=== PATIENT | male | born 1945 | race Caucasian/White ===

== ENCOUNTER → 2021-05-19 | Outpatient (CLI) | payer MEDICARE ==
--- NOTE | 2021-05-19 09:46 | US ---
EXAMINATION TYPE: US duplex aorta DATE OF EXAM: 05/19/2021 COMPARISON: Xray CLINICAL HISTORY: I71.4 Abdominal Aortic Aneurysm. AAA visualized on xray EXAM MEASUREMENTS: Abdominal Aorta: Mid: 2.8 x 3.5 cm Distal: 2.8 x 2.9 cm Bifurcation: TEMO: 1.7 x 1.7 cm MARISA: 1.3 x 1.3 cm Severely, morbidly obese pt, difficult scan, proximal portion unable to be visualized Ectatic aorta with largest measurement at mid portion= 3.5 cm/ heavily calcified aortic adhikari IMPRESSION: Mild aneurysmal dilatation and extensive atheromatous change.
== END | disposition home or self-care (01) ==
LOC: RADUSWWP 08:58
PROVIDERS: ATTEND Family Medicine
DX: I71.4 Abdominal aortic aneurysm, without rupture (principal); I70.0 Atherosclerosis of aorta
CPT/HCPCS: 93979

== ENCOUNTER → 2022-07-31 | Outpatient (CLI) | payer MEDICARE ==
[2022-07-31 14:07] LABS: Basophils # (A) 0.1 k/uL (0-0.2); Basophils % (A) 1 %; Eosinophils # (A) 0.3 k/uL (0-0.7); Eosinophils % (A) 3 %; HCT 47.9 % (39.0-53.0); Lymphocytes % (A) 23 %; MCH 29.9 pg (25.0-35.0); MCHC 33.3 g/dL (31.0-37.0); MCV 89.6 fL (80.0-100.0); Mean Platelet Volume 6.9; Monocytes # (A) 0.6 k/uL (0-1.0); Monocytes % (A) 7 %; Neutrophils # (A) 5.5 k/uL (1.3-7.7); Neutrophils % (A) 64 %; Platelet Count 232 k/uL (150-450); RBC 5.34 m/uL (4.30-5.90); RDW 13.1 % (11.5-15.5); WBC 8.7 k/uL (3.8-10.6)
[2022-07-31 14:16] LABS: Ionized Calcium 5.6 mg/dL (4.5-5.3)
[2022-07-31 14:23] LABS: ALT 26 U/L (4-49); AST 22 U/L (17-59); African American GFR (CKD) >90 (>60 ml/min/1.73 sqM); Albumin 3.9 g/dL (3.5-5.0); Albumin/Globulin Ratio 1.6; Alkaline Phosphatase 76 U/L (38-126); Anion Gap 6 mmol/L; Blood Urea Nitrogen 16 mg/dL (9-20); Calcium 9.5 mg/dL (8.4-10.2); Carbon Dioxide 28 mmol/L (22-30); Chloride 105 mmol/L (98-107); Globulin 2.4 g/dL; Glucose 106 mg/dL (74-99); Non-African American GFR(CKD) 89 (>60 ml/min/1.73 sqM); Potassium 4.7 mmol/L (3.5-5.1); Sodium 139 mmol/L (137-145); Total Bilirubin 0.4 mg/dL (0.2-1.3); Total Protein 6.3 g/dL (6.3-8.2)
[2022-07-31 23:11] LABS: Protein, Total 6.1 g/dL (6.2-8.2)
[2022-07-31 23:34] LABS: Chol/HDL Ratio 3.88 Ratio; LDL Cholesterol,Calculated 110.3 mg/dL (0.0-131.0)
[2022-08-01 20:50] LABS: Albumin 3.67 g/dL (3.80-4.90); Gamma Globulin 0.66 g/dL (0.70-1.50)
== END | disposition home or self-care (01) ==
LOC: LABWHC1 12:46
PROVIDERS: ATTEND Internal Medicine
DX: Z12.5 Encounter for screening for malignant neoplasm of prostate (principal); I10 Essential (primary) hypertension; E83.52 Hypercalcemia; R73.03 Prediabetes
CPT/HCPCS: 82652; 80061; 80053; 84443; 82330; 85025; 84165; 82306; 83970; 83036; 36415; G0103

== ENCOUNTER → 2022-08-29 | Outpatient (CLI) | payer MEDICARE ==
--- NOTE | 2022-08-29 09:41 | US ---
EXAMINATION TYPE: US duplex aorta DATE OF EXAM: 08/29/2022 COMPARISON: US CLINICAL INDICATION: Male, 76 years old with history of Z13.6 AAA; Known AAA TECHNIQUE: Multiple sonographic images of the abdominal aorta are obtained. FINDINGS: EXAM MEASUREMENTS: Abdominal Aorta: Proximal portion gassed out Mid: 2.6 x 3.1 cm Distal: 3.3 x 3.7 cm Bifurcation: TEMO: 1.7 x 1.7 cm MARISA: 1.7 x 1.6 cm PIEROGI MAKER NOTES: Morbidly obese pt, difficult to penetrate IMPRESSION: Distal abdominal aorta fusiform aneurysmal dilation up to 3.[address] angiogram of the abdomen and pelvis is recommended.
--- NOTE | 2022-08-29 12:32 | CA ---
Transthoracic Echo Report Name: Major Mancilla Age: 76 Gender: M : 1945 Exam Date: 08/29/2022 08:32 Exam Location: [facility] Ht (in): 70 Wt (lb): 263 Ordering Physician: Lamonte Duvall MD Attending/Referring Phys: Lamonte Duvall MD Obstetric Assistant Irina Lowry [facility] Procedure CPT: Indications: Z13.6 Screen for cardiovascular disorders I87.2 Ve Cardiac Hx: Technical Quality: Fair Contrast 1: Total Dose (mL): Contrast 2: Total Dose (mL): MEASUREMENTS (Male / Female) Normal Values 2D ECHO LV Diastolic Diameter PLAX 5.1 cm 4.2 - 5.9 / 3.9 - 5.3 cm LV Systolic Diameter PLAX 3.6 cm IVS Diastolic Thickness 1.7 cm 0.6 - 1.0 / 0.6 - 0.9 cm LVPW Diastolic Thickness 1.6 cm 0.6 - 1.0 / 0.6 - 0.9 cm LV Relative Wall Thickness 0.6 RV Internal Dim ED PLAX 3.4 cm LA Systolic Diameter LX 3.7 cm 3.0 - 4.0 / 2.7 - 3.8 cm LV Diastolic Volume MOD BP 137.0 cm??? 67 - 155 / 56 - 104 cm??? LV Systolic Volume MOD BP 80.2 cm??? 22 - 58 / 19 - 49 cm??? LV Ejection Fraction MOD BP 41.5 % >= 55 % LV Diastolic Volume MOD 4C 113.6 cm??? LV Systolic Volume MOD 4C 69.2 cm??? LV Ejection Fraction MOD 4C 39.1 % LV Diastolic Length 4C 8.5 cm LV Systolic Length 4C 7.3 cm LV Diastolic Volume MOD 2C 133.5 cm??? LV Systolic Volume MOD 2C 76.1 cm??? LV Ejection Fraction MOD 2C 43.0 % LV Diastolic Length 2C 8.0 cm LV Systolic Length 2C 7.1 cm LA Volume 61.6 cm??? 18 - 58 / 22 - 52 cm??? M-MODE Aortic Root Diameter MM 4.1 cm MV E Point Septal Separation 1.2 cm AV Cusp Separation MM 2.4 cm DOPPLER AV Peak Velocity 160.8 cm/s AV Peak Gradient 10.3 mmHg AI Peak Velocity 367.6 cm/s AI Peak Gradient 54.0 mmHg AI Pressure Half Time 721.9 ms MV Area PHT 2.4 cm??? Mitral E Point Velocity 63.9 cm/s Mitral A Point Velocity 105.6 cm/s Mitral E to A Ratio 0.6 MV Deceleration Time 316.8 ms MV E' Velocity 6.3 cm/s Mitral E to MV E' Ratio 10.2 FINDINGS Left Ventricle Left ventricular ejection fraction is estimated at 55-60 %. Left ventricular cavity size normal. Severely increased septal wall thickness. Normal LV systolic function with concentric LVH Right Ventricle Mild right ventricular dilatation. Unable to estimate the right ventricular systolic pressure. Right Atrium Normal right atrial size. Left Atrium Mildly increased left atrial volume. Mildly increased left atrial area. Mitral Valve Structurally normal mitral valve. No mitral stenosis, regurgitation or prolapse. Aortic Valve Aortic valve not well visualized. Moderate aortic regurgitation. Eccentric aortic regurgitation jet directed at the mitral valve. Tricuspid Valve Structurally normal tricuspid valve. No tricuspid stenosis, regurgitation or prolapse. Pulmonic Valve Structurally normal pulmonic valve. No pulmonic regurgitation. Pericardium Normal pericardium. No pericardial effusion. Aorta Moderate aortic dilatation at the level of the sinuses of valsalva 41 mm CONCLUSIONS Normal LV size and systolic function with concentric LVH. I aortic sclerosis and mild mitral and the calcification. Mild to moderate aortic regurgitation. No pericardial effusion Previewed by: Dr. Maria Esther Ramos MD (Electronically Signed) Final Date: 29 Aug 2022 12:31
== END | disposition home or self-care (01) ==
LOC: RADECHMAIN 08:27
PROVIDERS: ATTEND Internal Medicine
DX: Z13.6 Encounter for screening for cardiovascular disorders (principal); I87.2 Venous insufficiency (chronic) (peripheral); I70.0 Atherosclerosis of aorta
CPT/HCPCS: 93306; 93979

== ENCOUNTER → 2022-09-17 | Outpatient (CLI) | payer MEDICARE ==
--- NOTE | 2022-09-17 15:53 | NM ---
EXAMINATION TYPE: NM parathyroid w/spect DATE OF EXAM: 09/17/2022 COMPARISON: NONE CLINICAL INDICATION: Male, 76 years old with history of E21.3 hyperparathyroidism; TECHNIQUE: Following administration of 24.2 mCi Tc99m Sestamibi. Anterior projection images of the neck and ches t were obtained 10 minutes and 3 hours post injection. SPECT images of the neck and chest were obtai rizwan and reconstructed in three axes. FINDINGS: Thyroid tracer washout: Delayed images demonstrate complete tracer washout from the thyroid. Parathyroid uptake: None. The delayed images do not demonstrate any focal abnormal persistent uptake in the region of the parathyroid glands to suggest parathyroid adenoma. Normal uptake: There is physiological tracer uptake in the salivary glands. IMPRESSION: Normal parathyroid imaging study. No evidence for mediastinal uptake to suggest mediastinal parathyro id adenoma
== END | disposition home or self-care (01) ==
LOC: RADNMMAIN 10:26
PROVIDERS: ATTEND Internal Medicine
DX: E21.3 Hyperparathyroidism, unspecified (principal)
CPT/HCPCS: 78071; A9500

== ENCOUNTER → 2022-12-21 | Outpatient (CLI) | payer MEDICARE ==
[~2022-12-21] MED LIST: DOBUTamine DRIP for NUC MED 500 MG in DEXTROSE/WATER 1 250ML.BAG IV PRN
--- NOTE | 2022-12-21 12:43 | CA ---
Dobutamine Stress Echocardiogram Report Major Mancilla Age: 77 Gender: M : 1945 Exam Date: 12/21/2022 09:31 Exam Location: [place] Stress Ordering Physician: Jose Guadalupe Singer DO ([email or web address]) Referring Physician: FAMILIA, Cytology Supervisor: DUANE, Technologist: Ht (in): 70 Wt (lb): 270 Procedure CPT: Indication: R94.31, I10 ICD-9 Codes: Rhythm: Patient History: Cardiac Medications: Medications in past 24 hours: Contrast: Lumason Total Dose (mL): Stress Results Protocol: Dobutamine Peak Dose (???g/kg/min): 30 Duration (min:sec): Atropine:(mg) None Target HR: 123 Double Product: [id number] Resting HR: 67 Resting BP: 138 / 70 Peak HR: 129 Peak BP: 168 / 86 Max Predicted HR: 145 89 % Max Predicted HR Stress Summary: BP Response: Reason for Termination: Target HR Cardiac Symptoms: NO SYMPTOMS ECG Analysis Resting EKG: Normal sinus rhythm, heart rate 71 beats a minute Stress EKG: No significant ST-T wave changes diagnostic for ischemia by ST segment analysis Arrhythmia: There were monomorphic PVCs noticed during dobutamine infusion in early recovery. No sustained arrhythmias. Echo Analysis Base Echo Analysis: No obvious regional wall motion abnormality at rest Low Echo Anaylsis: Appropriate global and segmental augmentation of systolic function in all myocardial segments. No obvious regional wall motion abnormality Peak Echo Analysis: Appropriate global and segmental augmentation of systolic function in all myocardial segments. No obvious regional wall motion abnormality. Recovery Echo: No obvious regional wall motion abnormality MEASUREMENTS (Male/Female) Normal Values CONCLUSIONS Normal hemodynamic and clinical response to dobutamine infusion Nonischemic ECG response to dobutamine infusion Nonischemic echocardiographic response to dobutamine infusion next Normal dobutamine stress echo Dr Dale Dale (Electronically Signed) Final Date: 21 December 2022 12:43
== END | disposition home or self-care (01) ==
LOC: RADNMMAIN 11-07 09:07
PROVIDERS: ATTEND Internal Medicine
DX: R94.31 Abnormal electrocardiogram [ECG] [EKG] (principal); I10 Essential (primary) hypertension; R06.00 Dyspnea, unspecified
CPT/HCPCS: 93351

== ENCOUNTER → 2023-01-23 | Outpatient (CLI) | payer MEDICARE ==
[2023-01-23 11:52] LABS: African American GFR (CKD) >90 (>60 ml/min/1.73 sqM); Blood Urea Nitrogen 24 mg/dL (9-20); Non-African American GFR(CKD) 87 (>60 ml/min/1.73 sqM)
--- NOTE | 2023-01-23 16:26 | CT ---
EXAMINATION TYPE: CT abdomen wo/w con DATE OF EXAM: 01/23/2023 COMPARISON: Correlation CT chest 12/21/2022 HISTORY: 77-year-old male renal mass. N28.89 OTHER SPECIFIED DISORDERS OF KIDNEY AND URE TECHNIQUE: Contiguous axial scanning of the abdomen before and after administration of 100 ml Isovue 300 IV contrast. Delayed images through the kidneys and coronal/sagittal reconstructions performed. CT DLP: 3113.8 mGycm Automated exposure control for dose reduction was used. FINDINGS: Heart upper limits of normal in size. Scattered coronary artery calcifications are present. Tortuous descending thoracic aorta. Some strandy atelectasis or scarring in the lower lungs. No pleu ral effusion. No focal liver lesion or biliary ductal dilatation. Portal venous system is patent. Gallbladder, left adrenal gland, spleen, and pancreas within normal limits. A couple small hypodense cortical lesions within the right kidney measuring 1.7 cm at the upper pole and 1.1 cm at the lower p ole suggestive of small renal cortical cysts. The focal lobulation along the medial left kidney enhances as the normal adjacent renal parenchyma co mpatible with prominent renal lobulation. However, we do note a 2.2 cm stone within the renal pelvis and some mild urothelial thickening here p robably due to irritation. No suspicious renal mass. 1.4 cm low-density nodule right adrenal gland compatible with a benign lipid rich adrenal adenoma. No dilated small bowel, free fluid, or free air. Moderate atherosclerotic calcifications abdominal aorta and visualized iliac arteries with mild aneur ysm up to 3.1 cm of the infrarenal portion. Mild stool burden. Left-sided colonic diverticulosis. No pericolonic inflammatory change. Pelvis not imaged. Bones: Superior endplate deformity with secondary anterior wedging T12 vertebral body has a chronic a ppearance. Moderate to advanced spondylotic change throughout the visualized thoracic and lumbar spin e. IMPRESSION: 1. THE QUESTIONED LEFT KIDNEY FINDING ON PATIENT'S 12/21/2022 CT CORRESPONDS TO A PROMINENT CORTICAL LO BULATION. NO SUSPICIOUS MASS IS IDENTIFIED. 2. THERE IS A 2.2 CM STONE WITHIN THE LEFT RENAL PELVIS. NO SIGNIFICANT OBSTRUCTIVE UROPATHY. CORRELA TE FOR ANY ASSOCIATED SYMPTOMS. MILD UROTHELIAL THICKENING HERE IS LIKELY DUE TO IRRITATION. CONSIDER UROLOGY REFERRAL. 3. 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 4. 3.1 CM INFRARENAL AAA. LEFT-SIDED COLONIC DIVERTICULOSIS. MODERATE TO ADVANCED SPONDYLOTIC CHANGE THROUGHOUT THE VISUALIZED SPINE.
== END | disposition home or self-care (01) ==
LOC: RADCTMAIN 11:01
PROVIDERS: ATTEND Internal Medicine
DX: D35.01 Benign neoplasm of right adrenal gland (principal); N28.89 Other specified disorders of kidney and ureter; I71.43 Infrarenal abdominal aortic aneurysm, without rupture; K57.30 Diverticulosis of large intestine without perforation or abscess without bleeding; M47.819 Spondylosis without myelopathy or radiculopathy, site unspecified; N20.0 Calculus of kidney
CPT/HCPCS: 82565; 84520; 74170; 36415; Q9967

== ENCOUNTER → 2023-04-29 | Outpatient (CLI) | payer MEDICARE ==
[2023-04-29 14:32] LABS: Appearance,Urine Cloudy (Clear); Bacteria,Urine Rare /hpf; Bilirubin,Urine Negative (Negative); Blood,Urine Negative (Negative); Color,Urine Yellow; Glucose,Urine (UA) Negative (Negative); Hyaline Casts,Urine 4 /lpf (0-2); Ketones,Urine Negative (Negative); Leukocyte Esterase,Urine Moderate (Negative); Mucus,Urine Occasional /hpf; Nitrite,Urine Negative (Negative); PH, Urine 5.5 (5.0-8.0); Protein,Urine 1+ (Negative); RBC,Urine 28 /hpf (0-5); Specific Gravity,Urine 1.023 (1.001-1.035); Squamous Epithelial Cell,Urine 1 /hpf (0-4); Urobilinogen,Urine <2.0 mg/dL (<2.0); WBC,Urine 16 /hpf (0-5)
[2023-04-29 19:49] LABS: Basophils # (A) 0.09 X 10*3/uL (0.00-0.10); Basophils % (A) 0.9 %; Eosinophils # (A) 0.22 X 10*3/uL (0.04-0.35); Eosinophils % (A) 2.2 %; HCT 46.9 % (39.6-50.0); HGB 15.6 g/dL (13.0-17.0); Lymphocytes # (A) 1.98 X 10*3/uL (0.90-5.00); Lymphocytes % (A) 19.5 %; MCH 30.4 pg (27.0-32.0); MCHC 33.3 g/dL (32.0-37.0); MCV 91.2 FL (80.0-97.0); Mean Platelet Volume 9.8 FL (9.5-12.2); Monocytes # (A) 0.99 X 10*3/uL (0.20-1.00); Monocytes % (A) 9.7 %; NRBC Per 100 WBC 0 X 10*3/uL (0.00-0.01); Neutrophils # (A) 6.84 X 10*3/uL (1.80-7.70); Neutrophils % (A) 67.3 %; Platelet Count 286 X 10*3/uL (140-440); RBC 5.14 X 10*6/uL (4.40-5.60); RDW 12.9 % (11.5-14.5); WBC 10.16 X 10*3/uL (4.50-10.00)
[2023-04-29 20:30] LABS: Blood Urea Nitrogen 18.1 mg/dL (9.0-27.0); Calcium 10.4 mg/dL (8.7-10.3); Carbon Dioxide 25.1 mmol/L (21.6-31.8); Chloride 104 mmol/L (96-109); Glucose 130 mg/dL (70-110); Potassium 4.2 mmol/L (3.5-5.5); Sodium 140 mmol/L (135-145)
== END | disposition home or self-care (01) ==
LOC: LABPAT 13:16
PROVIDERS: ATTEND Urology
DX: Z01.812 Encounter for preprocedural laboratory examination (principal); N20.0 Calculus of kidney; R31.29 Other microscopic hematuria
CPT/HCPCS: 36415; 80048; 81001; 85025; 86850; 86900; 86901; 87086

== ENCOUNTER → 2023-07-16 | Outpatient (CLI) | payer MEDICARE ==
[2023-07-16 15:59] LABS: Basophils # (A) 0.09 X 10*3/uL (0.00-0.10); Basophils % (A) 0.9 %; Eosinophils # (A) 0.28 X 10*3/uL (0.04-0.35); Eosinophils % (A) 2.8 %; HCT 45.5 % (39.6-50.0); HGB 15.4 g/dL (13.0-17.0); Lymphocytes # (A) 1.98 X 10*3/uL (0.90-5.00); Lymphocytes % (A) 20.1 %; MCHC 33.8 g/dL (32.0-37.0); MCV 88.7 FL (80.0-97.0); Mean Platelet Volume 9.3 FL (9.5-12.2); Monocytes # (A) 0.84 X 10*3/uL (0.20-1.00); Monocytes % (A) 8.5 %; NRBC Per 100 WBC 0 X 10*3/uL (0.00-0.01); Neutrophils # (A) 6.64 X 10*3/uL (1.80-7.70); Neutrophils % (A) 67.3 %; Platelet Count 265 X 10*3/uL (140-440); RBC 5.13 X 10*6/uL (4.40-5.60); RDW 13.1 % (11.5-14.5); WBC 9.87 X 10*3/uL (4.50-10.00)
[2023-07-16 16:40] LABS: Chol/HDL Ratio 4.03 Ratio; LDL Cholesterol,Calculated 111.2 mg/dL (0.0-131.0)
[2023-07-16 16:41] LABS: ALT 21 U/L (10-49); AST 22 U/L (14-35); Albumin 4.1 g/dL (3.8-4.9); Albumin/Globulin Ratio 1.71 Ratio (1.60-3.17); Alkaline Phosphatase 83 U/L (41-126); BUN/Creat Ratio 18.45 Ratio (12.00-20.00); Blood Urea Nitrogen 20.3 mg/dL (9.0-27.0); Calcium 10.2 mg/dL (8.7-10.3); Carbon Dioxide 25.8 mmol/L (21.6-31.8); Chloride 103 mmol/L (96-109); Globulin 2.4 g/dL (1.6-3.3); Glucose 149 mg/dL (70-110); PSA Annual Screen 0.949 ng/mL (0.000-4.000); Potassium 4.5 mmol/L (3.5-5.5); Sodium 140 mmol/L (135-145); Total Bilirubin 0.4 mg/dL (0.3-1.2); Total Protein 6.5 g/dL (6.2-8.2)
[2023-07-16 20:12] LABS: Appearance,Urine Clear (Clear); Bilirubin,Urine Negative (Negative); Blood,Urine Negative (Negative); Color,Urine Dark Yellow (Yellow); Ketones,Urine Trace (Negative); Nitrite,Urine Negative (Negative)
[2023-07-16 20:46] LABS: Bacteria,Urine None Seen (None Seen)
== END | disposition home or self-care (01) ==
LOC: LABPAT 10:13
PROVIDERS: ATTEND Urology
DX: Z01.812 Encounter for preprocedural laboratory examination (principal); N20.0 Calculus of kidney; Z12.5 Encounter for screening for malignant neoplasm of prostate; I10 Essential (primary) hypertension; M85.80 Other specified disorders of bone density and structure, unspecified site
CPT/HCPCS: 80061; 80053; 84443; 85025; 81001; 82306; 83970; 87086; 83036; G0103

== ENCOUNTER 2023-07-23 06:04 | Day surgery (SDC) | payer MEDICARE ==
--- NOTE | 2023-07-19 17:18 | P.HPIHPCON ---
History of Present Illness H&P Date: 07/19/23 Chief Complaint: Left-sided renal stone This is a 77-year-old male with history of a 2.2 cm left-sided renal pelvis stone. Option of staged ureteroscopy versus ESWL versus PCNL was discussed with him in detail. Risk and benefit of each approach was discussed. He agreed to proceed with a PCNL, aware the risk which includes but not limited to bleeding, infection, injury to the kidney. Discussed also risk of injury to nearby organs which includes but not limited to the lung bowel and spleen. Risk of anesthesia was also discussed. He understood all the risk and agreed to proceed Consent for Procedure: I have explained the operation/procedure to the patient, including the risks, benefits, side effects, alternative therapies (including not receiving the proposed treatment or service), the likelihood of the patient achieving his/her goals, and potential recuperation problems for the procedure/sedation/analgesia, as well as any blood products, if indicated. I also explained to the patient the risks, benefits and side effects of the alternatives, as well as the risks related to not receiving the proposed procedure, care, treatment, or services. Past Medical History Past Medical History: Hypertension, Renal Disease Additional Past Medical History / Comment(s): Kidney stones History of Any Multi-Drug Resistant Organisms: None Reported Past Surgical History: Tonsillectomy Past Anesthesia/Blood Transfusion Reactions: No Reported Reaction Smoking Status: Current every day smoker - Past Family History Brother(s) Family Medical History: Cancer Additional Family Medical History / Comment(s): prostate cancer Medications and Allergies Home Medications Medication Instructions Recorded Confirmed Type Ascorbic Acid [Vitamin C] 1,000 mg PO DAILY 04/30/23 07/18/23 History Losartan/Hydrochlorothiazide 1 tab PO DAILY 04/30/23 07/18/23 History [Losartan-Hctz 100-25 mg Tab] Vitamin B Complex 1 each PO DAILY 04/30/23 07/18/23 History Vitamin E (Dl,Tocopheryl Acet) 400 unit PO DAILY 04/30/23 07/18/23 History [Vitamin E (400 Iu = 180 mg)] amLODIPine [Norvasc] 5 mg PO QAM 04/30/23 07/18/23 History Allergies Allergy/AdvReac Type Severity Reaction Status Date / Time Penicillins Allergy Rash/Hives Verified 07/18/23 13:48 Sulfa (Sulfonamide Allergy Rash/Hives Verified 07/18/23 13:48 Antibiotics) Surgical - Exam - General no distress, moderate pain - Eyes normal ocular movement, no pale - ENT normal nares, normal mucosa - Respiratory normal expansion, normal respiratory effort - Abdomen Abdomen: soft, non tender - Psychiatric oriented to time, oriented to person, oriented to place Assessment and Plan Assessment: OR for left-sided PCNL
[2023-07-23] MEDS ORDERED: HYDROmorphone 0.5 MG/0.5 ML SYRINGE IVP PRN (07:00)
[2023-07-23] MEDS: LACTATED RINGERS 1,000 ML IV SCH (07:06)
[2023-07-23] MEDS: ONDANSETRON 4 MG/2 ML VIAL IVP ONE (07:09)
[2023-07-23] MEDS: DEXAMETHASONE SOD PHOSPHATE 4 MG/ML 1 ML VIAL IV ONE (07:10)
[2023-07-23] MEDS: CLINDAMYCIN 600 MG in DEXTROSE 5% IN WATER 50 ML IVPB PRN (07:15)
[2023-07-23] MEDS ORDERED: GLYCOPYRROLATE 0.2 MG/ML 2 ML VIAL ONE (07:28)
[2023-07-23] MEDS ORDERED: NEOSTIGMINE 1 MG/ML 10 ML VIAL ONE (07:28)
[2023-07-23] MEDS ORDERED: LIDOCAINE 1% INJ 10MG/ML (20 ML MDV) ONE (07:28)
[2023-07-23] MEDS ORDERED: PHENYLEPHRINE-0.9% NACL SYG 1,000 MCG/10 ML SYRINGE ONE (07:28)
[2023-07-23] MEDS ORDERED: SUCCINYLCHOLINE CHLORIDE 200 MG/10 ML VIAL IV ONE (07:28)
[2023-07-23] MEDS ORDERED: KETOROLAC 15 MG/ML 1 ML VIAL ONE (07:28)
[2023-07-23] MEDS ORDERED: PROPOFOL 10 MG/ML 20 ML VIAL IV ONE (07:28)
[2023-07-23] MEDS ORDERED: fentaNYL (PF) 50 MCG/ML 2 ML AMP ONE (07:28)
[2023-07-23] MEDS ORDERED: ROCURONIUM 10 MG/ML (5 ML VIAL) IV ONE (07:28)
[2023-07-23] MEDS: GENTAMICIN 120 MG in SODIUM CHLORIDE 0.9% 100 ML IVPB PRN (08:00)
--- NOTE | 2023-07-23 08:26 | XR ---
EXAMINATION TYPE: XR KUB DATE OF EXAM: 07/23/2023 COMPARISON: 01/24/2024 HISTORY: Preop TECHNIQUE: One view abdominal series FINDINGS: The osseous structures are intact. The bowel gas pattern is nonspecific. There is a large left renal calculus overlying the left renal pelvis measuring 2.3 cm. Additional bilateral upper quadrant calci fications may be vascular. Degenerative changes of the spine. Arthropathy of the hips. Additional calcifications in the pelvis a re likely vascular. IMPRESSION: 1. Large left renal pelvic calcification measuring 2.3 cm..
[2023-07-23] MEDS: IOPAMIDOL-300 100ML BTL MISCELLANE ONE (08:51)
--- NOTE | 2023-07-23 09:03 | P.PCN ---
Date of Procedure: 07/23/23 Preoperative Diagnosis: Left renal stone, large Postoperative Diagnosis: Same Procedure(s) Performed: Percutaneous access left kidney Anesthesia: DARRYL Surgeon: Garret Rawls Pathology: none sent Condition: stable Disposition: PACU Indications for Procedure: The patient is 77. He has a 2.2 cm stone in the left renal pelvis. we'll perform percutaneous nephrostolithotomy. He is asked me to perform percutaneous access Description of Procedure: The patient has been previously anesthetized. Cystoscopy has been performed to place an occluding balloon catheter in the proximal left ureter. He's placed in a prone position with care to airways and extremities in a sterile prep and drape. The collecting system was outlined with air a. I identify a left lower pole calyx and the Chiba needle is used to enter the left lower pole calyx. The cope mandrel wire is then passed through the Chiba needle and advances into the proximal ureter. The Chiba needle is removed and the 6-Lithuanian dilator is passed over the wire into the proximal ureter. The wire and inner catheter removed and a 035 Super Stiff wires passed down into the ureter. Over the superstiff wire and 8-10-Lithuanian exchange/dilating catheter passed into the proximal ureter. Inner catheters removed in a second wires passed down the ureter as a safety wire. Over the superstiff wire is then passed the dilating balloon and the tract is dilated to 30-Lithuanian with the working sheath passed over the balloon into the collecting system.
--- NOTE | 2023-07-23 09:31 | FL ---
EXAMINATION TYPE: FL Perc Nephrostomy New Access DATE OF EXAM: 07/23/2023 COMPARISON: NONE HISTORY: Fluoroscopy TECHNIQUE: Fluoroscopy. FINDINGS: Fluoroscopic guidance was provided during procedure performed . Total dose area product (D AP) in uGy*m?, mGy*cm? (or similar): 86.55. IMPRESSION: As Above.
[2023-07-23] MEDS ORDERED: ONDANSETRON 4 MG/2 ML VIAL IVP PRN (10:11)
[2023-07-23] MEDS ORDERED: MAG HYDROX/AL HYDROX/SIMETH 30 ML CUP PO PRN (10:11)
[2023-07-23] MEDS: DEXTROSE 5%-0.45% NACL 1,000 ML IV SCH (11:28)
--- NOTE | 2023-07-23 12:35 | P.OP ---
Date of Procedure: 07/23/23 Preoperative Diagnosis: Left renal stone Postoperative Diagnosis: Left renal stone, urethral stricture Procedure(s) Performed: Cystoscopy, left ureteral catheterization, urethral dilation ,PCNL, nephrostomy tube placement Implants: None Anesthesia: JAMESA Surgeon: Lionel Brady Surface Hydrologist #1: Garret Rawls Estimated Blood Loss (ml): 100 Pathology: other (left renal stone) Condition: stable Disposition: PACU Indications for Procedure: This is a 77-year-old male with history of a 2.2 cm left-sided renal pelvis stone. Option of staged ureteroscopy versus ESWL versus PCNL was discussed with him in detail. Risk and benefit of each approach was discussed. He agreed to proceed with a PCNL, aware the risk which includes but not limited to bleeding, infection, injury to the kidney. Discussed also risk of injury to nearby organs which includes but not limited to the lung bowel and spleen. Risk of anesthesia was also discussed. He understood all the risk and agreed to proceed Operative Findings: Left bulbar urethral stricture, large stone in the left renal pelvis Description of Procedure: Patient brought to the operating room, general anesthesia was induced. He was p repped and draped in sterile fashion and placed in frog-leg position on the stretcher. Cystoscopy through the 21 Nigerien sheath was inserted per urethra, at this point a bulbar stricture was encountered, I was unable to advance the scope into the bladder, and then switched to the 17 Nigerien sheath and still had difficulty advancing the scope into the bladder. At this time a sensor wire was advanced through the scope and into the bladder. Next using the S shaped dilators the stricture was dilated to 20 Nigerien starting at 14 Nigerien and going all the way up to 20, the stricture was approximately 10-12 Nigerien in size and measured half a centimeter. After dilation at this time a 17 Nigerien sheath was inserted per urethra and advanced past the bulbar stricture and into the bladder, Brief cystoscopy was performed which showed no abnormality within the bladder, I was unable to visualize the entire bladder given the patient's position. At this time the left ureteral orifice was intubated with a sensor wire. Next a balloon occlusion catheter was passed over the wire and into the kidney. Next the patient was placed in prone position on the operating room table. Left flank was prepped sterilely. Next access was obtained to the lower pole calyx by Dr. Rawls, please see his procedure note for that part of this procedure. At this point rigid nephroscope was inserted through the access sheath, a large stone was visualized in the renal pelvis. Using the cyber wand the stone was fragmented, stone fragments were removed using the grasper. Repeat renoscopy using the rigid nephroscope and the flexible cystoscope showed no sizable fragments or injury to the kidney. On fluoroscopy there is no radiopaque densities seen. Antegrade nephrostogram was performed showed no evidence of contrast extravasation or evidence of any filling defects within the collecting system. Contrast was seen flowing down the ureter. At this time a sensor wire was advanced through the nephroscope and down the ureter. The nephroscope was removed with the wire in place. Next a 12 Nigerien nephrostomy tube was passed over the wire into the collecting system. Antegrade nephrostogram was performed which confirmed the nephrostomy tube is within the renal pelvis, next the sheath was removed with the nephrostomy tube in place. The medial aspect of the incision was closed using 2-0 Vicryl. The lateral aspect was closed using 2 oh's silk, the nephrostomy tube was secured to the skin using a 2-0 silk stitch. Sterile dressing was applied to the incision. Patient tolerated procedure was taken recovery in stable condition
[2023-07-23] MEDS: HEPARIN SODIUM,PORCINE 5,000 UNIT/ML 1 ML VIAL SQ SCH (15:43)
[2023-07-23] MEDS: ACETAMINOPHEN TAB 325 MG TAB PO PRN (20:31)
[2023-07-24 08:02] VITALS: BP 151/56; PULSE 69; RESP 18; TEMP 98
--- NOTE | 2023-07-24 08:47 | P.DS ---
Providers Expected date of discharge: 07/24/23 Attending physician: Lionel Brady MD Primary care physician: [facility] Course: On the day of admission, the patient underwent an uncomplicated left PCNL. A urethral stricture was encountered, requiring urethral dilation. The stone was removed in its entirety. The perioperative course was unremarkable. On the first postoperative day, the patient was reasonably comfortable. His only complaint was mild urethral discomfort. The nephrostomy tube was draining faintly blood-tinged urine, essentially clear, and the dressing was dry and intact. The Zayas catheter was draining clear yellow urine. Procedures: Urethral dilation, left percutaneous nephrolithotomy (PCNL) on 07/23/2023. Patient Condition at Discharge: Good Plan - Discharge Summary Discharge Rx Participant: No New Discharge Prescriptions: No Action Vitamin E (Dl,Tocopheryl Acet) [Vitamin E (400 Iu = 180 mg)] 400 unit PO DAILY Vitamin B Complex 1 each PO DAILY Losartan/Hydrochlorothiazide [Losartan-Hctz 100-25 mg Tab] 1 tab PO DAILY Ascorbic Acid [Vitamin C] 1,000 mg PO DAILY amLODIPine [Norvasc] 5 mg PO QAM Discharge Medication List Ascorbic Acid [Vitamin C] 1,000 mg PO DAILY 04/30/23 [History] Losartan/Hydrochlorothiazide [Losartan-Hctz 100-25 mg Tab] 1 tab PO DAILY 0 04/30/23 [History] Vitamin B Complex 1 each PO DAILY 04/30/23 [History] Vitamin E (Dl,Tocopheryl Acet) [Vitamin E (400 Iu = 180 mg)] 400 unit PO DAILY 04/30/23 [History] amLODIPine [Norvasc] 5 mg PO QAM 04/30/23 [History] Follow up Appointment(s)/Referral(s): Garret Rawls MD [STAFF PHYSICIAN] - 07/29/23 8:40 am Activity/Diet/Wound Care/Special Instructions: Discharge home with Zayas catheter and left nephrostomy tube. Instruct patient on the use of both. Patient should drink plenty of fluids. Diet as tolerated. No strenuous activity. Discharge Disposition: HOME SELF-CARE
[2023-07-24] MEDS: amLODIPine 5 MG TAB PO SCH (09:32)
[2023-07-24] MEDS: LOSARTAN-HCTZ 50-12.5 MG 1 EACH TAB PO SCH (09:33)
== END 2023-07-24 14:02 | disposition home or self-care (01) ==
LOC: OR 06:04 → 4SSUR 09:24 → OR 07-24 14:02
PROVIDERS: ATTEND Urology
DX: N20.0 Calculus of kidney (principal); N35.919 Unspecified urethral stricture, male, unspecified site; I10 Essential (primary) hypertension; F17.200 Nicotine dependence, unspecified, uncomplicated; Z87.442 Personal history of urinary calculi; Z80.42 Family history of malignant neoplasm of prostate; Z79.899 Other long term (current) drug therapy; Z80.0 Family history of malignant neoplasm of digestive organs; Z88.2 Allergy status to sulfonamides
CPT/HCPCS: 82365; 50432; 74018; 50080; 52281; C2628; C1769 ×3; C1729 ×3; C1894; J1644 ×2; J1100; J2405; J1580; Q9967; J0736

== ENCOUNTER 2023-07-24 17:22 | Emergency (ER) | payer MEDICARE ==
--- NOTE | 2023-07-24 17:49 | ED ---
General Adult HPI - General Chief complaint: Recheck/Abnormal Lab/Rx Stated complaint: Post-op comp. Time Seen by Provider: 07/24/23 17:40 Source: patient, RN notes reviewed Mode of arrival: ambulatory Limitations: no limitations - History of Present Illness Initial comments: This is a 77-year-old male with history of PCNL surgery with nephrostomy placem ent and urinary catheter on 07/24/23 who presents to the ED chief complaint of blood in his nephrostomy catheter bag. Patient states that he was discharged from [facility] today, 07/24/2023 with a follow-up appointment July 28 with a wood dowel machine operator. Patient states that his pain is a 7 out of 10 and was prescribed [place] outpatient. Patient is concerned due to blood in his nephrostomy bag, and states that he was not educated on the amount of blood that would be approximately found. No other acute symptoms at this time. Patient states he was not discharged home on antibiotics. - Related Data Home Medications Medication Instructions Recorded Confirmed Ascorbic Acid [Vitamin C] 1,000 mg PO DAILY 04/30/23 07/23/23 Losartan/Hydrochlorothiazide 1 tab PO DAILY 04/30/23 07/23/23 [Losartan-Hctz 100-25 mg Tab] Vitamin B Complex 1 each PO DAILY 04/30/23 07/23/23 Vitamin E (Dl,Tocopheryl Acet) 400 unit PO DAILY 04/30/23 07/23/23 [Vitamin E (400 Iu = 180 mg)] amLODIPine [Norvasc] 5 mg PO QAM 04/30/23 07/23/23 HYDROcodone/APAP 5-325MG [[place] 0.5 tab PO DAILY PRN 07/24/23 07/24/23 5-325] Vitamin D3 (Unknown Strength) 1 dose PO DAILY 07/24/23 07/24/23 Allergies Allergy/AdvReac Type Severity Reaction Status Date / Time bee venom protein (honey bee) Allergy Anaphylaxis Verified 07/24/23 18:50 Penicillins Allergy Rash/Hives Verified 07/24/23 18:50 Sulfa (Sulfonamide Allergy Rash/Hives Verified 07/24/23 18:50 Antibiotics) Review of Systems ROS Statement: Those systems with pertinent positive or pertinent negative responses have been documented in the HPI. ROS Other: All systems not noted in ROS Statement are negative. Past Medical History Past Medical History: Hypertension, Renal Disease Additional Past Medical History / Comment(s): Kidney stones History of Any Multi-Drug Resistant Organisms: None Reported Past Surgical History: Tonsillectomy Additional Past Surgical History / Comment(s): lithotripsy Past Anesthesia/Blood Transfusion Reactions: No Reported Reaction Past Psychological History: No Psychological Hx Reported Smoking Status: Current every day smoker Past Alcohol Use History: None Reported Past Drug Use History: None Reported - Past Family History Mother Family Medical History: No Reported History Brother(s) Family Medical History: Cancer Additional Family Medical History / Comment(s): prostate cancer General Exam Limitations: no limitations General appearance: alert, in no apparent distress Head exam: Present: atraumatic, normocephalic, normal inspection Eye exam: Present: normal appearance, PERRL, EOMI. Absent: scleral icterus, conjunctival injection, periorbital swelling ENT exam: Present: normal exam, mucous membranes moist Neck exam: Present: normal inspection. Absent: tenderness, meningismus, lymphadenopathy Respiratory exam: Present: normal lung sounds bilaterally. Absent: respiratory distress, wheezes, rales, rhonchi, stridor Cardiovascular Exam: Present: regular rate, normal rhythm, normal heart sounds. Absent: systolic murmur, diastolic murmur, rubs, gallop, clicks GI/Abdominal exam: Present: soft, normal bowel sounds. Absent: distended, tenderness, guarding, rebound, rigid exam: Present: other (urinary cath in place, no signs of discharge) Extremities exam: Present: normal inspection, full ROM, normal capillary refill. Absent: tenderness, pedal edema, joint swelling, calf tenderness Back exam: Present: tenderness, CVA tenderness (L), other (left nephrostomy tube in place and draining appropriatley, no erythmea or pus noted from site). Absent: normal inspection Neurological exam: Present: alert, oriented X3, CN II-XII intact Psychiatric exam: Present: normal affect, normal mood Skin exam: Present: warm, dry, intact, normal color. Absent: rash Course Vital Signs 07/24/23 17:29 Temperature 98.0 F Pulse Rate 85 Respiratory 18 Rate Blood Pressure 190/94 O2 Sat by Pulse 92 L Oximetry Medical Decision Making - Medical Decision Making Was pt. sent in by a medical professional or institution (, PA, HAND MARKER, urgent care, hospital, or residential...) When possible be specific @ -No Did you speak to anyone other than the patient for history (EMS, parent, family, police, friend...)? What history was obtained from this source @ -No Did you review nursing and triage notes (agree or disagree)? Why? @ -I reviewed and agree with nursing and triage notes Were old charts reviewed (outside hosp., previous admission, EMS record, old EKG, old radiological studies, urgent care reports/EKG's, residential records)? Report findings @ -No old charts were reviewed Differential Diagnosis (chest pain, altered mental status, abdominal pain women, abdominal pain men, vaginal bleeding, weakness, fever, dyspnea, syncope, headache, dizziness, GI bleed, back pain, seizure, CVA, palpatations, mental health, musculoskeletal)? @ -Nephrostomy tube placement, urinary cath placement EKG interpreted by me (3pts min.). @ -none X-rays interpreted by me (1pt min.). @ -None done CT interpreted by me (1pt min.). @ -None done U/S interpreted by me (1pt. min.). @ -None done What testing was considered but not performed or refused? (CT, X-rays, U/S, labs)? Why? @ -None What meds were considered but not given or refused? Why? @ -None Did you discuss the management of the patient with other professionals (professionals i.e. , PA, HAND MARKER, lab, RT, psych nurse, social work job titles, personnel administrator, teacher, multisensor intelligence officer, rn case mgr)? Give summary @ -Spoke with Dr. Ozuna, discussed the patient's symptoms. Companion was not concerned with patient's symptoms and was instructed to follow-up on July 28 as scheduled outpatient. Was smoking cessation discussed for >3mins.? @ -No Was critical care preformed (if so, how long)? @ -No Were there social determinants of health that impacted care today? How? (Homelessness, low income, unemployed, alcoholism, drug addiction, transportation, low edu. Level, literacy, decrease access to med. care, shelter, rehab)? @ -No Was there de-escalation of care discussed even if they declined (Discuss DNR or withdrawal of care, Hospice)? DNR status @ -No What co-morbidities impacted this encounter? (DM, HTN, Smoking, COPD, CAD, Cancer, CVA, ARF, Chemo, Hep., AIDS, mental health diagnosis, sleep apnea, morbid obesity)? @ -None Was patient admitted / discharged? Hospital course, mention meds given and route, prescriptions, significant lab abnormalities, going to OR and other pertinent info. @ -Discharged. 77-year-old male with a history of nephrostomy tube PCNL surgery and urinary cathather placement today. On examination follow-up nephrostomy and urinary catheter tubes are draining appropriately, in the past. Noted to have blood. Drainage. I spoke with wood dowel machine operator and discussed patient's normal BUN my concern is patient's symptoms at this time and instructed to follow-up outpatient on the . Patient's bandage over nephrostomy tube was changed. discussed with Dr. Dow Undiagnosed new problem with uncertain prognosis? @ -No Drug Therapy requiring intensive monitoring for toxicity (Heparin, Nitro, Insulin, Cardizem)? @ -No Were any procedures done? @ -No Diagnosis/symptom? @ -Nephrostomy tube Acute, or Chronic, or Acute on Chronic? @ -Acute Uncomplicated (without systemic symptoms) or Complicated (systemic symptoms)? @ -uncomplicated Side effects of treatment? @ -No Exacerbation, Progression, or Severe Exacerbation? @ -No Poses a threat to life or bodily function? How? (Chest pain, [place], [place], pneumonia, PE, COPD, DKA, ARF, appy, cholecystitis, CVA, Diverticulitis, Homicidal, Suicidal, threat to staff... and all critical care pts) @ -No Disposition Clinical Impression: Nephrostomy tube bleed Narrative: Please return to the Emergency Department if symptoms worsen or any other concerns. Follow-up on July 28 as documented with wood dowel machine operator. Disposition: HOME SELF-CARE Condition: Good Instructions (If sedation given, give patient instructions): Zayas Catheter Placement and Care (ED) Is patient prescribed a controlled substance at d/c from ED?: No Referrals: Lamonte Duvall DO [Primary Care Provider] - 1-2 days Time of Disposition: 18:45
[2023-07-24] MEDS: HYDROmorphone 0.5 MG/0.5 ML SYRINGE IM STA (18:10)
[2023-07-24 18:32] VITALS: RESP 18
[2023-07-24 19:44] VITALS: BP 137/62; PULSE 79; TEMP 98.5
== END 2023-07-24 19:11 | disposition home or self-care (01) ==
LOC: EC 17:22
DX: T83.092A Other mechanical complication of nephrostomy catheter, initial encounter (principal); F17.200 Nicotine dependence, unspecified, uncomplicated; Z91.030 Bee allergy status; Z88.0 Allergy status to penicillin; Z88.2 Allergy status to sulfonamides
CPT/HCPCS: 99283; 96372; J1170

== ENCOUNTER 2023-07-26 07:52 | Emergency (ER) | payer MEDICARE ==
[2023-07-26] MEDS: SODIUM CHLORIDE 0.9% 500 ML 500 ML IV ONE ×2 (08:19)
--- NOTE | 2023-07-26 08:21 | ED ---
General Adult HPI - General Chief complaint: Recheck/Abnormal Lab/Rx Stated complaint: post op comp Time Seen by Provider: 07/26/23 08:00 Source: patient, RN notes reviewed, old records reviewed Mode of arrival: EMS Limitations: no limitations - History of Present Illness Initial comments: This is a 77-year-old male who presents to the emergency department who recently had a kidney stone removal and had a nephrostomy tube placed as well as a Zayas catheter placed because of urethral stricture. Patient states this morning he accidentally bumped into the nephrostomy tube and started to bleed so became concerned and came to the emergency department. Patient denies any fever chills or cough. Patient denies any abdominal pain at this time. Patient denies being on any blood thinners - Related Data Home Medications Medication Instructions Recorded Confirmed Ascorbic Acid [Vitamin C] 1,000 mg PO DAILY 04/30/23 07/24/23 Losartan/Hydrochlorothiazide 1 tab PO DAILY 04/30/23 07/24/23 [Losartan-Hctz 100-25 mg Tab] Vitamin B Complex 1 cap PO DAILY 04/30/23 07/24/23 Vitamin E (Dl,Tocopheryl Acet) 400 unit PO DAILY 04/30/23 07/24/23 [Vitamin E (400 Iu = 180 mg)] amLODIPine [Norvasc] 5 mg PO DAILY 04/30/23 07/24/23 HYDROcodone/APAP 5-325MG [[place] 0.5 tab PO DAILY PRN 07/24/23 07/24/23 5-325] Vitamin D3 (Unknown Strength) 1 dose PO DAILY 07/24/23 07/24/23 Allergies Allergy/AdvReac Type Severity Reaction Status Date / Time bee venom protein (honey bee) Allergy Anaphylaxis Verified 07/26/23 08:02 Penicillins Allergy Rash/Hives Verified 07/26/23 08:02 Sulfa (Sulfonamide Allergy Rash/Hives Verified 07/26/23 08:02 Antibiotics) Review of Systems ROS Statement: Those systems with pertinent positive or pertinent negative responses have been documented in the HPI. ROS Other: All systems not noted in ROS Statement are negative. Past Medical History Past Medical History: Hypertension, Renal Disease Additional Past Medical History / Comment(s): Kidney stones History of Any Multi-Drug Resistant Organisms: None Reported Past Surgical History: Tonsillectomy Additional Past Surgical History / Comment(s): lithotripsy, kidney stone removal with catheter and drain to left flank. Past Anesthesia/Blood Transfusion Reactions: No Reported Reaction Past Psychological History: No Psychological Hx Reported Smoking Status: Current every day smoker Past Alcohol Use History: None Reported Past Drug Use History: None Reported - Past Family History Mother Family Medical History: No Reported History Brother(s) Family Medical History: Cancer Additional Family Medical History / Comment(s): prostate cancer General Exam - General Exam Comments Initial Comments: GENERAL: Patient is well-developed and well-nourished. Patient is nontoxic and well- hydrated and is in mild distress. ENT: Neck is soft and supple. No significant lymphadenopathy is noted. Oropharynx is clear. Moist mucous membranes. Neck has full range of motion without eliciting any pain. EYES: The sclera were anicteric and conjunctiva were pink and moist. Extraocular movements were intact and pupils were equal round and reactive to light. Eyelids were unremarkable. ABDOMEN: Soft and nontender with normal bowel sounds. SKIN: Skin is clear with no lesions or rashes and otherwise unremarkable. NEUROLOGIC: Patient is alert and oriented x3. Cranial nerves II through XII are grossly intact. Motor and sensory are also intact. Normal speech, volume and content. Symmetrical smile. MUSCULOSKELETAL: Normal extremities with adequate strength and full range of motion. Nephrostomy tube is still attached with no active bleeding at this time. LYMPHATICS: No significant lymphadenopathy is noted PSYCHIATRIC: Normal psychiatric evaluation. Limitations: no limitations Course Vital Signs 07/26/23 07/26/23 07/26/23 07:55 08:29 09:27 Temperature 98.1 F Pulse Rate 90 89 78 Respiratory 18 18 18 Rate Blood Pressure 139/86 130/70 146/52 O2 Sat by Pulse 94 L 98 94 L Oximetry Medical Decision Making - Medical Decision Making Was pt. sent in by a medical professional or institution (, PA, CHIPPER OPERATOR, urgent care, hospital, or longterm...) When possible be specific @ -No Did you speak to anyone other than the patient for history (EMS, parent, family, police, friend...)? What history was obtained from this source @ -No Did you review nursing and triage notes (agree or disagree)? Why? @ -I reviewed and agree with nursing and triage notes Were old charts reviewed (outside hosp., previous admission, EMS record, old EKG, old radiological studies, urgent care reports/EKG's, longterm records)? Report findings @ -I reviewed the prior ER visit and looked at the lab work hemoglobin was stable between the 2 visits Differential Diagnosis (chest pain, altered mental status, abdominal pain women, abdominal pain men, vaginal bleeding, weakness, fever, dyspnea, syncope, headache, dizziness, GI bleed, back pain, seizure, CVA, palpatations, mental health, musculoskeletal)? @ -Postop hemorrhaging, postop infection, hematoma, this is not an all-inclusive list EKG interpreted by me (3pts min.). @ -As above X-rays interpreted by me (1pt min.). @ -None done CT interpreted by me (1pt min.). @ -None done U/S interpreted by me (1pt. min.). @ -None done What testing was considered but not performed or refused? (CT, X-rays, U/S, labs)? Why? @ -None What meds were considered but not given or refused? Why? @ -None Did you discuss the management of the patient with other professionals (professionals i.e. , PA, CHIPPER OPERATOR, lab, RT, psych nurse, public health social worker, brim stitcher, teacher, disability insurance hearing officer, ed case manager)? Give summary @ -I spoke with Dr. Ozuna and he wanted the patient to follow-up on the as scheduled Was smoking cessation discussed for >3mins.? @ -No Was critical care preformed (if so, how long)? @ -No Were there social determinants of health that impacted care today? How? (Homelessness, low income, unemployed, alcoholism, drug addiction, transportation, low edu. Level, literacy, decrease access to med. care, custodial, rehab)? @ -No Was there de-escalation of care discussed even if they declined (Discuss DNR or withdrawal of care, Hospice)? DNR status @ -No What co-morbidities impacted this encounter? (DM, HTN, Smoking, COPD, CAD, Cancer, CVA, ARF, Chemo, Hep., AIDS, mental health diagnosis, sleep apnea, morbid obesity)? @ -None Was patient admitted / discharged? Hospital course, mention meds given and route, prescriptions, significant lab abnormalities, going to OR and other pe rtinent info. @ -Patient will be discharged home to follow-up with the urologist as previously scheduled. Patient received a liter of normal saline in the emergency department because he was slightly dehydrated Undiagnosed new problem with uncertain prognosis? @ -No Drug Therapy requiring intensive monitoring for toxicity (Heparin, Nitro, Insulin, Cardizem)? @ -No Were any procedures done? @ -No Diagnosis/symptom? @ -Postop bleeding Acute, or Chronic, or Acute on Chronic? @ -Acute Uncomplicated (without systemic symptoms) or Complicated (systemic symptoms)? @ -Uncomplicate Side effects of treatment? @ -No Exacerbation, Progression, or Severe Exacerbation? @ -No Poses a threat to life or bodily function? How? (Chest pain, [place], [place], pneumonia, PE, COPD, DKA, ARF, appy, cholecystitis, CVA, Diverticulitis, Homicidal, Suicidal, threat to staff... and all critical care pts) @ -No - Lab Data Result diagrams: 07/26/23 08:16 07/26/23 08:16 Lab Results 07/26/23 07/26/23 Range/Units 08:16 08:16 WBC 12.0 H (3.8-10.6) k/uL RBC 4.76 (4.30-5.90) m/uL Hgb 14.4 (13.0-17.5) gm/dL Hct 43.0 (39.0-53.0) % MCV 90.3 (80.0-100.0) fL MCH 30.2 (25.0-35.0) pg MCHC 33.5 (31.0-37.0) g/dL RDW 13.4 (11.5-15.5) % Plt Count 221 (150-450) k/uL MPV 7.5 Neutrophils % 75 % Lymphocytes % 13 % Monocytes % 7 % Eosinophils % 3 % Basophils % 1 % Neutrophils # 9.0 H (1.3-7.7) k/uL Lymphocytes # 1.6 (1.0-4.8) k/uL Monocytes # 0.8 (0-1.0) k/uL Eosinophils # 0.4 (0-0.7) k/uL Basophils # 0.1 (0-0.2) k/uL Sodium 135 L (137-145) mmol/L Potassium 3.9 (3.5-5.1) mmol/L Chloride 104 (98-107) mmol/L Carbon Dioxide 26 (22-30) mmol/L Anion Gap 5 mmol/L BUN 23 H (9-20) mg/dL Creatinine 0.84 (0.66-1.25) mg/dL Est GFR (CKD-EPI)AfAm >90 (>60 ml/min/1.73 sqM) Est GFR (CKD-EPI)NonAf 86 (>60 ml/min/1.73 sqM) Glucose 112 H (74-99) mg/dL Calcium 9.3 (8.4-10.2) mg/dL Total Bilirubin 1.3 (0.2-1.3) mg/dL AST 37 (17-59) U/L ALT 22 (4-49) U/L Alkaline Phosphatase 60 (38-126) U/L Total Protein 6.1 L (6.3-8.2) g/dL Albumin 3.5 (3.5-5.0) g/dL Disposition Clinical Impression: Post-op bleeding, Dehydration Disposition: HOME SELF-CARE Condition: Good Instructions (If sedation given, give patient instructions): Dehydration (ED) Is patient prescribed a controlled substance at d/c from ED?: No Referrals: Lamonte Duvall DO [Primary Care Provider] - 1-2 days Time of Disposition: 09:44
[2023-07-26 08:23] LABS: Basophils # (A) 0.1 k/uL (0-0.2); Basophils % (A) 1 %; Eosinophils # (A) 0.4 k/uL (0-0.7); Eosinophils % (A) 3 %; HGB 14.4 gm/dL (13.0-17.5); Lymphocytes # (A) 1.6 k/uL (1.0-4.8); Lymphocytes % (A) 13 %; MCH 30.2 pg (25.0-35.0); MCHC 33.5 g/dL (31.0-37.0); MCV 90.3 fL (80.0-100.0); Mean Platelet Volume 7.5; Monocytes # (A) 0.8 k/uL (0-1.0); Monocytes % (A) 7 %; Neutrophils % (A) 75 %; Platelet Count 221 k/uL (150-450); RBC 4.76 m/uL (4.30-5.90); RDW 13.4 % (11.5-15.5)
[2023-07-26 08:42] VITALS: RESP 18; TEMP 98.1
[2023-07-26 08:42] LABS: ALT 22 U/L (4-49); African American GFR (CKD) >90 (>60 ml/min/1.73 sqM); Albumin 3.5 g/dL (3.5-5.0); Anion Gap 5 mmol/L; Blood Urea Nitrogen 23 mg/dL (9-20); Calcium 9.3 mg/dL (8.4-10.2); Carbon Dioxide 26 mmol/L (22-30); Chloride 104 mmol/L (98-107); Glucose 112 mg/dL (74-99); Non-African American GFR(CKD) 86 (>60 ml/min/1.73 sqM); Sodium 135 mmol/L (137-145); Total Bilirubin 1.3 mg/dL (0.2-1.3); Total Protein 6.1 g/dL (6.3-8.2)
[2023-07-26 08:55] LABS: AST 37 U/L (17-59); Potassium 3.9 mmol/L (3.5-5.1)
[2023-07-26 08:56] LABS: Alkaline Phosphatase 60 U/L (38-126)
[2023-07-26] MEDS: HYDROmorphone 0.5 MG/0.5 ML SYRINGE IVP STA (10:16)
[2023-07-26 10:50] VITALS: BP 130/58; PULSE 79
== END 2023-07-26 10:23 | disposition home or self-care (01) ==
LOC: EC 07:52
DX: N99.820 Postprocedural hemorrhage of a genitourinary system organ or structure following a genitourinary system procedure (principal); E86.0 Dehydration; F17.200 Nicotine dependence, unspecified, uncomplicated; Z91.030 Bee allergy status; Z88.0 Allergy status to penicillin; Z88.2 Allergy status to sulfonamides
CPT/HCPCS: 99284; 96374; 96361; 36415; 80053; 85025; J1170

== ENCOUNTER → 2023-09-05 | Outpatient (CLI) | payer MEDICARE ==
--- NOTE | 2023-09-05 13:34 | CT ---
EXAMINATION TYPE: CT lumbar spine wo con DATE OF EXAM: 09/05/2023 12:04 PM COMPARISON: None HISTORY: low back pain x few years no known injury CT DLP: 1023 mGycm Automated exposure control for dose reduction was used. Unenhanced CT of the lumbar spine was performed. Bone and soft tissue window settings are submitted as well as coronal and sagittal reconstructions. Findings: There is moderate dextroscoliosis of the lumbar spine. There is a moderate to severe superior endplate compression fracture of T12 with slight retropulsion. The L1-S1 vertebral segments are normal in height and alignment. There is moderate to marked degenerative disc disease with moderate to marked disc space narrowing, v acuum phenomena, spondylosis and scattered discogenic endplate changes. Secondary to surgical disc bulge, facet hypertrophy and thickening of ligamentum flavum, there is mil d spinal stenosis at the L2-3, L3-4 and L4-5 levels. There is moderate to marked bony neural foraminal stenosis at the L2-3 level on the left and mild at the L4-5 level on the left. There is mild bony neural foraminal encroachment at the L3-4 level in the right. The sacrum and SI joints are normal. There is a 3.5 cm aneurysmal dilatation of the distal abdominal aorta. IMPRESSION: 1. Moderate to marked superior endplate compression fracture T12 of indeterminate age. 2. Moderate to marked multilevel degenerative disease throughout the lumbar spine. 3. No lumbar disc herniation. 4. Mild spinal stenosis at L2-3, L3-4 and L4-5 levels described above. 5. Moderate facet arthropathy at L3-4, L4-5 and L5-S1 levels. 6. Aneurysmal dilatation of distal abdominal aorta.
== END | disposition home or self-care (01) ==
LOC: RADCTMAIN 11:42
PROVIDERS: ATTEND Internal Medicine
DX: M47.817 Spondylosis without myelopathy or radiculopathy, lumbosacral region (principal); M48.061 Spinal stenosis, lumbar region without neurogenic claudication; M48.54XA Collapsed vertebra, not elsewhere classified, thoracic region, initial encounter for fracture; I71.40 Abdominal aortic aneurysm, without rupture, unspecified
CPT/HCPCS: 72131

== ENCOUNTER → 2023-10-23 | Outpatient (CLI) | payer MEDICARE ==
--- NOTE | 2023-10-24 10:02 | CA ---
Transthoracic Echo Report Name: Major Mancilla Age: 77 Gender: M : 1945 Exam Date: 10/23/2023 15:15 Exam Location: [place] [facility] Ht (in): 70 Wt (lb): 272 Ordering Physician: Jose Guadalupe Singer DO ([email or web address]) Attending/Referring Phys: Casing Operator Sarina Valdes RDCS Procedure CPT: Indications: R60.00 AAA Cardiac Hx: Technical Quality: Poor Contrast 1: Total Dose (mL): Contrast 2: Total Dose (mL): MEASUREMENTS (Male / Female) Normal Values 2D ECHO LV Diastolic Diameter PLAX 5.5 cm 4.2 - 5.9 / 3.9 - 5.3 cm LV Systolic Diameter PLAX 3.8 cm IVS Diastolic Thickness 1.4 cm 0.6 - 1.0 / 0.6 - 0.9 cm LVPW Diastolic Thickness 1.3 cm 0.6 - 1.0 / 0.6 - 0.9 cm LV Relative Wall Thickness 0.5 RV Internal Dim ED PLAX 2.5 cm Aortic Root Diameter 3.5 cm LA Systolic Diameter LX 3.9 cm 3.0 - 4.0 / 2.7 - 3.8 cm LV Diastolic Volume MOD BP 72.8 cm??? 67 - 155 / 56 - 104 cm??? LV Systolic Volume MOD BP 46.1 cm??? 22 - 58 / 19 - 49 cm??? LV Ejection Fraction MOD BP 36.7 % >= 55 % LV Diastolic Volume MOD 4C 78.7 cm??? LV Systolic Volume MOD 4C 51.3 cm??? LV Ejection Fraction MOD 4C 34.7 % LV Diastolic Length 4C 7.5 cm LV Systolic Length 4C 6.7 cm LV Diastolic Volume MOD 2C 64.5 cm??? LV Systolic Volume MOD 2C 24.5 cm??? LV Ejection Fraction MOD 2C 62.0 % LV Diastolic Length 2C 7.9 cm LV Systolic Length 2C 4.4 cm LA Volume 53.2 cm??? 18 - 58 / 22 - 52 cm??? LA Volume Index 21.1 cm???/m??? 16 - 28 cm???/m??? Aorta at Sinuses Diameter 4.2 cm M-MODE Aortic Root Diameter MM 3.3 cm LA Systolic Diameter MM 4.2 cm LA Ao Ratio MM 1.3 AV Cusp Separation MM 2.5 cm DOPPLER AV Peak Velocity 130.0 cm/s AV Peak Gradient 6.8 mmHg AV Mean Velocity 94.1 cm/s AV Mean Gradient 3.9 mmHg AV Velocity Time Integral 25.2 cm AI Peak Velocity 283.4 cm/s AI Peak Gradient 32.1 mmHg AI Pressure Half Time 573.1 ms MV Area PHT 2.5 cm??? Mitral E Point Velocity 54.6 cm/s Mitral A Point Velocity 68.3 cm/s Mitral E to A Ratio 0.8 MV Deceleration Time 309.1 ms TR Peak Velocity 217.6 cm/s TR Peak Gradient 18.9 mmHg Right Ventricular Systolic Press 23.9 mmHg FINDINGS Left Ventricle Left ventricular ejection fraction is estimated at 55-60 %. Mildly increased septal wall thickness. No obvious regional wall motion abnormalities. Left ventricular cavity size normal. Right Ventricle Normal right ventricular size and function. Right ventricular systolic pressure within normal limits. Right Atrium Mild right atrial dilatation. Left Atrium Mild left atrial dilatation. Mitral Valve Structurally normal mitral valve. Mild mitral regurgitation. No mitral stenosis. Aortic Valve Trileaflet aortic valve. No aortic stenosis. Moderate aortic regurgitation. Eccentric aortic regurgitation jet directed at the mitral valve. Tricuspid Valve Structurally normal tricuspid valve. Mild tricuspid regurgitation. No tricuspid stenosis. Pulmonic Valve Structurally normal pulmonic valve. No pulmonic stenosis. Trace pulmonic regurgitation. Pericardium No pericardial or pleural effusion. Aorta Moderate aortic dilatation at the level of the sinuses of valsalva (root), 4.2cm CONCLUSIONS Left ventricular ejection fraction 55-60% Mildly increased left ventricular wall thickness Moderate aortic regurgitation RVSP 24 Mild tricuspid regurgitation No pericardial effusion Previewed by: Dr. Jose Guadalupe Singer DO (Electronically Signed) Final Date: 24 October 2023 10:00
== END | disposition home or self-care (01) ==
LOC: RADECHMAIN 14:58
PROVIDERS: ATTEND Internal Medicine
DX: I08.2 Rheumatic disorders of both aortic and tricuspid valves (principal); R60.0 Localized edema
CPT/HCPCS: 93306

== ENCOUNTER → 2023-10-24 | Outpatient (CLI) | payer MEDICARE ==
[2023-10-24 13:29] VITALS: BP 145/68; PULSE 71; RESP 16
--- NOTE | 2023-10-24 14:56 | P.PAINPG ---
PQRS Measure Charge Sheet Comment: HISTORY OF PRESENT ILLNESS: A 77 yr old male w at side as a referral from Dr Duvall presents today w severe and chronic LBP > 1 yr secondary to T12 compression fracture, DDD, spondylosis and facet arthropathy without myelopathy for evaluation. Pt states pain level is provoked at 9 /10 in intensity, constant, localized in the R lower lumbar spine, predominantly axial, sharp in character w occasional shooting pain towards the RLE. Pain is provoked by over activity and PT in 2016. Pt now follows a physician guided home stretches daily since 2016 w little relief. Pt is alleviated by ice, medications (Strunk, Celebrex), repositioning and rest . Oswestry axial pain score at 38. PMH: OA, HTN, CKD, PVD, Hyperparathyroidism, Psoriasis PSH: Nephrostolithotomy (2023), Cystoscopy (2023), Tonsillectomy, Colonoscopy SH: Daily tobacco use, No ETOH use, No illicit drug use FH: Mo- No Reported History. Bro- Prostate CA All: See list Meds: See list REVIEW OF ORGAN SYSTEMS: CONSTITUTIONAL: No fevers or chills. No recent weight loss. NEUROLOGICAL: + numbness and tingling along the distal extremities. No seizure disorders or headaches. MUSCULOSKELETAL: + pain PSYCHIATRIC: Denies current depression or suicidal th oughts. Physical Examinations : Constitutional : Cooperative , not in acute distress . Neurologic : Cranial nerve II to XII intact. No focal neurological deficits. Psychiatric : alert & oriented x 3. Matching mood & appropriate affect. Judgment & insight intact. Musculoskeletal : Cervical Spine Motor strength in the deltoid and biceps: Normal right side. Normal Left side Motor strength biceps and the wrist extensors: Normal right side . Normal left side Motor strength in the triceps muscle: Normal right side. Normal left side Deep tendon reflexes: Normal at the biceps. Normal at Brachioradialis. Normal at triceps Vertebral body tenderness to deep palpation over Cervical facet loading test: positive bilaterally Spurling test: positive bilaterally Neck distraction test: positive bilaterally Elke sign: positive bilaterally Lumbar spine Motor strength lower extremities ,thigh and legs 5/5 Right side , 5/5 Left side Deep tendon reflexes : Normal Knee Jerk. Normal Ankle Jerk Vertebral body tenderness over L4 Li Test positive R L4-L5 Lumbar facet Loading Test: positive Right / positive Left Range of motion of the lumbar spine Flexion 30 degrees, extension 10 degrees Straight Leg Raise test: Left/ Right positive at degrees Wilfredo test: positive right / positive left. Severe tenderness over the Sacroiliac joint on the Right / Left sides Gaenslen test: positive bilaterally Seated flexion test: positive bilaterally. Sacral spine : Severe tenderness over the Sacroiliac joint: right side / left side Range of motion: Flexion of the lumbar spine <60 degrees Range of motion: Extension of the lumbar spine <20 degrees Gaenslen's Test positive Wilfredo test: positive right side / left side Thigh Thrust Test Sacral Thrust Test Imaging: CT non contrast of the lumbar spine from 09/05/23 reviewed Assessment/ Plan : Lumbar DDD, T12 compression fracture Recommendation of R TFESI L4-L5, L5-S1 #1. May need a series of injections for optimal pain relief. Risks, benefits of procedure discussed and patient verbalized understanding. Admits to anti- coagulant use or medical history of diabetes. Protocol for discontinuation/ continuation of medications jesika procedure discussed. All questions answered. I have spent greater than 30 minutes on patient care today. Dr Decker was available by phone for the evaluation of this patient. The time was used to review the medical records including relevant urine studies and Prescription history (MAPs), review of the available imaging, evaluation and examination of the patient, coordination of care with the medical staff and if applicable referring physicians, as well as creation of the medical record Home Medications: Ambulatory Orders Ascorbic Acid [Vitamin C] 1,000 mg PO DAILY 04/30/23 Losartan/Hydrochlorothiazide [Losartan-Hctz 100-25 mg Tab] 1 tab PO DAILY 04/30/23 Vitamin B Complex 1 cap PO DAILY 04/30/23 Vitamin E (Dl,Tocopheryl Acet) [Vitamin E (400 Iu = 180 mg)] 400 unit PO DAILY 04/30/23 amLODIPine [Norvasc] 5 mg PO DAILY 04/30/23 HYDROcodone/APAP 5-325MG [Strunk 5-325] 0.5 tab PO DAILY PRN 07/24/23 Vitamin D3 (Unknown Strength) 1 tab PO DAILY 07/24/23 Controlled Substance Measures - Controlled Substance Measures Is patient prescribed a controlled substance at discharge?: No
== END ==
LOC: PNWHC3 12:13
PROVIDERS: ATTEND Specialist
DX: M48.061 Spinal stenosis, lumbar region without neurogenic claudication (principal); M51.36 Other intervertebral disc degeneration, lumbar region; M48.54XA Collapsed vertebra, not elsewhere classified, thoracic region, initial encounter for fracture; Z72.0 Tobacco use; Z91.030 Bee allergy status; Z88.0 Allergy status to penicillin; Z88.2 Allergy status to sulfonamides
CPT/HCPCS: 99211

== ENCOUNTER 2023-11-05 11:59 | Day surgery (SDC) | payer MEDICARE ==
[2023-11-05 12:49] VITALS: TEMP 98.2
[2023-11-05] MEDS ORDERED: LACTATED RINGERS 1,000 ML IV SCH (12:49)
--- NOTE | 2023-11-05 12:59 | P.PCN ---
Date of Procedure: 11/05/23 Description of Procedure: PROCEDURE 1. Cervical epidural steroid injection under fluoroscopic guidance C6/7 2. Cervical epidurogram. PREOPERATIVE DIAGNOSIS: Cervical radiculopathy POSTOPERATIVE DIAGNOSIS: Cervical radiculopathy Imaging: Fluoroscopy was used, images where saved to the medical record ANESTHESIA: local only PROCEDURE DESCRIPTION / TECHNIQUE: The patient was seen and identified in the preoperative area. Risks, benefits, and alternatives were discused with the patient and the patient has consented to the procedure. Risks of the procedure include potential for bleeding, infection, nerve damage, and incomplete pain relief were discussed with the patient. All questions were answered for the patient Patient was taken to the OR and time out was completed. The patient was placed in the prone position on the procedure table. A pillow was placed under the patients chest to increase the cervical interlaminar space. The cervical area was prepped and draped in the usual sterile fashion. Vital signs were closely monitored during the procedure. Using anterior-posterior fluoroscopy, the C6-C7 interlaminar space was identified and the skin over this site was marked and then infiltrated with 1% lidocaine subcutaneously. Subsequently, a 20-gauge 3-1/2-inch Tuohy epidural needle was inserted and advanced toward the epidural space by means of the [id number] technique and guided by AP and lateral fluoroscopy. The correct needle position in the epidural space was verified with the injection of 1 mL of the water soluble contrast dye Isovue-180 and observing an excellent epidurogram with the epidural spread of the dye, after negative aspiration for blood and CSF and in the absence of paresthesias. Again after negative aspiratio n, a mixture containing 10 mg Dexamethasone and 2 ml of preservative-free normal saline injected and a washout of epidurogram was seen. Needle was withdrawn intact, skin was cleansed, and bandages were applied. Complications: none. Disposition: patient was placed in supine position and transferred to the recovery room area in stable condition and there was no evidence of upper or lower extremity motor or sensory deficit after the procedure patient was discharged from recovery room after discharge criteria met and home discharge instructions was given by the staff and patient will follow with the pain as directed.
[2023-11-05] MEDS ORDERED: DEXAMETHASONE SOD PHOSPHATE 10 MG/ML 1 ML VIAL ONE (13:15)
[2023-11-05] MEDS ORDERED: IOPAMIDOL M200 10 ML VIAL ONE (13:15)
--- NOTE | 2023-11-05 13:32 | P.PCN ---
Date of Procedure: 11/05/23 Description of Procedure: PREOPERATIVE DIAGNOSIS: Lumbar radiculopathy POSTOPERATIVE DIAGNOSIS: Lumbar radiculopathy PROCEDURE 1. Transforaminal epidural steroid injection under fluoroscopic guidance R 07/18, 08/13 2. Lumbar epidurogram IMAGING Fluoroscopy was used, images where saved to the medical record ANESTHESIA: Patient re-evaluated immediately prior to sedation lOCAL only EBL: Minimal PROCEDURE DESCRIPTION / TECHNIQUE: The patient was seen and identified in the preoperative area. Risks, benefits, complications, and alternatives were discussed with the patient. The patient agreed to proceed with the procedure and signed the consent, vital signs were stable prior to the procedure. Patient was taken to the OR and time out was completed. The patient was placed in the prone position on procedure table and a pillow was placed under the abdomen to reduce lumbar lordosis. The lumbosacral area was prepped and draped in the usual sterile fashion. Vital signs were closely monitored during the procedure. Conscious sedation was used. Using oblique fluoroscopy, the chin of the "Yonis dog" at the pedicle and the skin and deeper tissues just below was localized with 1% lidocaine. Subsequently, a 22-gauge 5-inch spinal needle was advanced under a tunneled view fluoroscopic guidance just underneath the chin of the "Yonis dog". Under lateral fluoroscopy, the needle was then advanced to the posterior border interforaminal space. After negative aspiration of CSF and blood and with no paresthesias, 1 mL of Omnipaque-240 contrast dye was injected excellent epidurogram. Subsequently, a solution totalling 2ml of dexamethasone and PFNS was injected after negative aspiration (total of 10mg of dexamethasone was used). The needle was removed intact. COMPLICATIONS: None DISPOSITION: The patient was placed in a supine position and transferred to the recovery area in a stable condition for observation. There was no evidence of lower extremity motor or sensory deficit after the procedure. Patient was discharged from the recovery room after meeting discharge criteria. Home discharge instructions were given to the patient by the staff. The patient was reexamined prior to discharge. Follow up as directed. IF IT IS NOT BETTER, I WOULD RECOMMEND SURGERY INTERVENTION.
[2023-11-05 13:36] VITALS: RESP 18
[2023-11-05 14:09] VITALS: BP 139/62; PULSE 87
--- NOTE | 2023-11-05 14:27 | FL ---
Fluoroscopy History: M54.16 LUMBAR RADICULOPATHY Right transforaminal epidural steroid inj 19 sec fl . DAP
== END 2023-11-05 14:09 | disposition home or self-care (01) ==
LOC: ORPAIN 11:59
PROVIDERS: ATTEND Hospitalist
DX: M54.16 Radiculopathy, lumbar region (principal)
CPT/HCPCS: 64483; J1100; Q9966

== ENCOUNTER → 2023-11-15 | Outpatient (CLI) | payer MEDICARE ==
--- NOTE | 2023-11-15 11:25 | US ---
EXAMINATION TYPE: US venous doppler duplex LE DATE OF EXAM: 11/15/2023 11:17 AM COMPARISON: NONE CLINICAL INDICATION: Male, 78 years old with history of R60.0 LOWER EXTREMITY EDEMA; left foot edema for 1 week SIDE PERFORMED: bilateral TECHNIQUE: The lower extremity deep venous system is examined utilizing real time linear array sonog amisha with graded compression, doppler sonography and color-flow sonography. VESSELS IMAGED: Common Femoral Vein Deep Femoral Vein Greater Saphenous Vein * Femoral Vein Popliteal Vein Small Saphenous Vein * Proximal Calf Veins (* superficial vessels) Right Leg: no evidence of DVT Left Leg: no evidence of DVT IMPRESSION: Grayscale, color doppler, spectral doppler imaging performed of the deep veins of the lo wer extremities. There is normal flow, compressibility, vascular waveforms.
== END | disposition home or self-care (01) ==
LOC: RADUSWWP 10:47
PROVIDERS: ATTEND Internal Medicine
DX: R60.0 Localized edema (principal)
CPT/HCPCS: 93970

== ENCOUNTER → 2023-11-21 | Outpatient (CLI) | payer MEDICARE | LOC: PNWHC3 08:54 | PROVIDERS: ATTEND Specialist | DX: M54.14 Radiculopathy, thoracic region | CPT/HCPCS: 99211 ==

== ENCOUNTER 2023-12-06 12:05 | Day surgery (SDC) | payer MEDICARE ==
[2023-12-06] MEDS ORDERED: LACTATED RINGERS 1,000 ML BAG ONE (13:22)
[2023-12-06] MEDS ORDERED: MIDAZOLAM 2 MG/2 ML VIAL ONE (13:52)
[2023-12-06] MEDS ORDERED: ROPIVACAINE 5MG/ML 20ML VIAL ONE (13:52)
[2023-12-06] MEDS ORDERED: fentaNYL (PF) 50 MCG/ML 2 ML AMP ONE (13:52)
--- NOTE | 2024-01-14 18:20 | FL ---
EXAMINATION TYPE: FL guided pain mgmt statistic DATE OF EXAM: 12/13/2023 8:38 AM COMPARISON: Pre Operative Images if available both CT/MRI or plain film CLINICAL INDICATION: Male, 78 years old with history of RT lumbar facet; TECHNIQUE: FL guided pain mgmt statistic, multiple fluoroscopic images provided for procedure. Total fluoroscopy time: 7 seconds Total submitted images to PACS: 2 DAP: [id number] mGym2 Gycm2 uGym2 cGycm2 or equivalent. FINDINGS: Fluoroscopic images during injection for pain management demonstrate multilevel degeneration changes throughout the spine. No evidence for fracture. No acute process identified. IMPRESSION: 1. No evidence for intraoperative complication. 2. Please see the operative/procedural note for further details. [facility], , 01/14/2024 6:17 PM
== END 2023-12-06 14:47 ==
LOC: ORPAIN 12:05
PROVIDERS: ATTEND Specialist
DX: M47.816 Spondylosis without myelopathy or radiculopathy, lumbar region (principal); M51.36 Other intervertebral disc degeneration, lumbar region; Z88.0 Allergy status to penicillin; Z88.2 Allergy status to sulfonamides; Z91.030 Bee allergy status
CPT/HCPCS: 64493; 64494

== ENCOUNTER → 2023-12-25 | Outpatient (CLI) | payer MEDICARE ==
[2023-12-25 10:19] VITALS: BP 190/90; PULSE 60; RESP 16; TEMP 97.6
--- NOTE | 2024-01-01 11:29 | P.PAINPG ---
PQRS Measure Charge Sheet Comment: HISTORY OF PRESENT ILLNESS: A 78 yr old male w at side presents today w severe and chronic LBP > 1 yr secondary to T12 compression fracture, radiculopathy, spondylosis and facet arthropathy without myelopathy for evaluation s/p R MBB L4-L5/ L5-S1 #2. Pt states he experienced 95 % pain relief x 3 wks s/p procedure. Pt states pain level is provoked at 1 /10 in intensity, constant, localized in the R lower lumbar spine, predominantly axial, sharp in character w occasional shooting pain towards the RLE. Pain is provoked by over activity and PT in 2016. Pt now follows a physician guided home stretches daily since 2016 w little relief. Pt is alleviated by ice, medications , repositioning and rest . Interventional procedures include R TFESI L4-L5, L5-S1 x1, R MBB L3-L5 x2 (12/06, 01/06) Medications include [place], Celebrex REVIEW OF ORGAN SYSTEMS: CONSTITUTIONAL: No fevers or chills. No recent weight loss. NEUROLOGICAL: + numbness and tingling along the distal extremities. No seizure disorders or headaches. MUSCULOSKELETAL: + pain PSYCHIATRIC: Denies current depression or suicidal thoughts. Physical Examinations : Constitutional : Cooperative , not in acute distress . Neurologic : Cranial nerve II to XII intact. No focal neurological deficits. Psychiatric : alert & oriented x 3. Matching mood & appropriate affect. Judgment & insight intact. Musculoskeletal : Cervical Spine Motor strength in the deltoid and biceps: Normal right side. Normal Left side Motor strength biceps and the wrist extensors: Normal right side . Normal left side Motor strength in the triceps muscle: Normal right side. Normal left side Deep tendon reflexes: Normal at the biceps. Normal at Brachioradialis. Normal at triceps Vertebral body tenderness to deep palpation over Cervical facet loading test: positive bilaterally Spurling test: positive bilaterally Neck distraction test: positive bilaterally Elke sign: positive bilaterally Lumbar spine Motor strength lower extremities ,thigh and legs 5/5 Right side , 5/5 Left side Deep tendon reflexes : Normal Knee Jerk. Normal Ankle Jerk Vertebral body tenderness over L4 Li Test positive R L4-L5 Lumbar facet Loading Test: positive Right / positive Left L4-L5/ L5-S1 Range of motion of the lumbar spine Flexion 30 degrees, extension 10 degrees Straight Leg Raise test: Left/ Right positive at degrees Wilfredo test: positive right / positive left. Severe tenderness over the Sacroiliac joint on the Right / Left sides Gaenslen test: positive bilaterally Seated flexion test: positive bilaterally. Sacral spine : Severe tenderness over the Sacroiliac joint: right side / left side Range of motion: Flexion of the lumbar spine <60 degrees Range of motion: Extension of the lumbar spine <20 degrees Gaenslen's Test positive Wilfredo test: positive right side / left side Thigh Thrust Test Sacral Thrust Test Imaging: CT non contrast of the lumbar spine from 09/05/23 reviewed Assessment/ Plan : Lumbar radiculopathy, T12 compression fracture Will manage residual pain and may RTC on an as needed basis. All questions answered. I have spent greater than 30 minutes on patient care today. Dr Decker was available by phone for the evaluation of this patient. The time was used to review the medical records including relevant urine studies and Prescription history (MAPs), review of the available imaging, evaluation and examination of the patient, coordination of care with the medical staff and if applicable referring physicians, as well as creation of the medical record - Pain Location Lower Back Non-Pharmacological Interventions: Binder, Distraction Pharmacological Interventions: Block PQRS Narrative: Hx Alcohol Use (MH) No Home Medications: Ambulatory Orders Ascorbic Acid [Vitamin C] 1,000 mg PO DAILY 04/30/23 Losartan/Hydrochlorothiazide [Losartan-Hctz 100-25 mg Tab] 1 tab PO DAILY 04/30/23 Vitamin B Complex 1 cap PO DAILY 04/30/23 Vitamin E (Dl,Tocopheryl Acet) [Vitamin E (400 Iu = 180 mg)] 400 unit PO DAILY 04/30/23 HYDROcodone/APAP 5-325MG [[place] 5-325] 0.5 tab PO DAILY PRN 07/24/23 Vitamin D3 (Unknown Strength) 1 tab PO DAILY 07/24/23 Controlled Substance Measures - Controlled Substance Measures Is patient prescribed a controlled substance at discharge?: No
== END ==
LOC: PNWHC3 09:47
PROVIDERS: ATTEND Specialist
DX: M47.816 Spondylosis without myelopathy or radiculopathy, lumbar region
CPT/HCPCS: 99211

== ENCOUNTER → 2024-05-05 | Outpatient (CLI) | payer MEDICARE ==
[2024-05-05 15:01] LABS: HCT 49.4 % (39.6-50.0); MCH 29.1 pg (27.0-32.0); MCHC 32.4 g/dL (32.0-37.0); MCV 89.8 FL (80.0-97.0); Mean Platelet Volume 9.6 FL (9.5-12.2); Platelet Count 286 X 10*3/uL (140-440); RDW 13.1 % (11.5-14.5); WBC 10.18 X 10*3/uL (4.50-10.00)
[2024-05-05 15:02] LABS: Basophils # (A) 0.08 X 10*3/uL (0.00-0.10); Basophils % (A) 0.8 %; Lymphocytes # (A) 1.93 X 10*3/uL (0.90-5.00); Monocytes # (A) 0.89 X 10*3/uL (0.20-1.00); Monocytes % (A) 8.7 %; NRBC Per 100 WBC 0 X 10*3/uL (0.00-0.01); Neutrophils # (A) 7.05 X 10*3/uL (1.80-7.70); Neutrophils % (A) 69.2 %
[2024-05-05 19:00] LABS: ALT 18 U/L (10-49); AST 19 U/L (14-35); Albumin 4.1 g/dL (3.8-4.9); Albumin/Globulin Ratio 1.78 Ratio (1.60-3.17); Alkaline Phosphatase 81 U/L (41-126); Blood Urea Nitrogen 20.4 mg/dL (9.0-27.0); Carbon Dioxide 24.2 mmol/L (21.6-31.8); Chloride 103 mmol/L (96-109); Globulin 2.3 g/dL (1.6-3.3); Glucose 113 mg/dL (70-110); LDL Cholesterol,Calculated 106.8 mg/dL (0.0-131.0); Magnesium 1.9 mg/dL (1.5-2.4); Sodium 141 mmol/L (135-145); Total Bilirubin 0.4 mg/dL (0.3-1.2); Total Protein 6.4 g/dL (6.2-8.2); Uric Acid 7.5 mg/dL (3.7-8.7)
== END | disposition home or self-care (01) ==
LOC: LABWHC1 10:45
PROVIDERS: ATTEND Internal Medicine
DX: Z12.5 Encounter for screening for malignant neoplasm of prostate (principal); I10 Essential (primary) hypertension; E83.52 Hypercalcemia; N20.0 Calculus of kidney; R73.03 Prediabetes
CPT/HCPCS: 80061; 80053; 84443; 82330; 83735; 84550; 85025; 83970; 83036; 36415; G0103

== ENCOUNTER → 2024-05-19 | Outpatient (CLI) | payer MEDICARE ==
--- NOTE | 2024-05-19 15:07 | XR ---
Left knee Clinical knee pain COMPARISON: None TECHNIQUE: 4 views of the left knee were obtained. FINDINGS: There is no fracture, dislocation or focal intraosseous abnormality. There is possibly a small joint effusion. There is mild chondrocalcinosis of the medial and lateral compartments. There is mild narrowing of th e medial compartment. There are scattered arterial vascular calcifications. IMPRESSION: 1. No acute trauma. 2. possible small joint effusion. 3. Mild joint space narrowing and osteoarthritic change of the medial compartment. 4. Mild chondrocalcinosis of the medial and lateral compartments. [facility], Workstation: [id number], 05/19/2024 3:05 PM
--- NOTE | 2024-05-19 15:28 | CTL ---
EXAMINATION TYPE: CT Low Dose Lung DATE OF EXAM ORDERED: 05/19/2024 COMPARISON: 12/21/2022 CLINICAL INDICATION: Male, 78 years old with history of Z12.2 SOLITARY PULMONARY NODULE R91.1 LUNG CA SCR; PHH, Current smoker, 1PPD x30yrs., Lung cancer screening, History of Smoking/tobacco use. TECHNIQUE: Low dose computed tomography scan was performed through the chest at 1 mm thick sections a nd reconstructed images in multiple planes at 1 mm and [address] DLP: 161.[address] CTDI: 4.3 mGy Automated exposure control for dose reduction was used. CT DIAGNOSTIC QUALITY: Satisfactory FINDINGS: EXAMINATION TYPE: CT Low Dose Lung DATE OF EXAM ORDERED: 05/19/2024 HISTORY: Lung cancer screening CT DLP: 161.[address] CTDI: 4.3 mGy Automated exposure control for dose reduction was used. Comparison: None TECHNIQUE: Low dose computed tomography scan was performed through the chest at 1 mm thick sections a nd reconstructed images in multiple planes at 1 mm and [address] DIAGNOSTIC QUALITY: Satisfactory FINDINGS: There is a stable 3 mm nodule in the right upper lobe. No new or suspicious lung mass or nodule is se en. The lungs are clear and there is no abnormal airspace consolidation or interstitial density. There is no mediastinal, hilar or axillary adenopathy. There is no pleural effusion, pleural thickening or pneumothorax. No focal osseous lesions are seen. Limited scans the upper abdomen reveals no gross abnormality IMPRESSION: 1. Lung rads Category 2 benign. Continue routine screening at yearly intervals. 2. No acute cardiopulmonary disease. [facility], , 05/19/2024 3:25 PM
== END | disposition home or self-care (01) ==
LOC: RADCTMAIN 14:17
PROVIDERS: ATTEND Internal Medicine
DX: Z12.2 Encounter for screening for malignant neoplasm of respiratory organs (principal); R91.1 Solitary pulmonary nodule; F17.210 Nicotine dependence, cigarettes, uncomplicated; M17.12 Unilateral primary osteoarthritis, left knee; M11.262 Other chondrocalcinosis, left knee
CPT/HCPCS: 71271

== ENCOUNTER 2024-07-13 12:53 | Emergency (ER) | payer MEDICARE ==
--- NOTE | 2024-07-13 13:19 | ED ---
SOB HPI - General Chief Complaint: Shortness of Breath Stated Complaint: SOB, L leg pain Time Seen by Provider: 07/13/24 13:19 Source: patient, family, RN notes reviewed, old records reviewed Mode of arrival: ambulatory Limitations: no limitations - History of Present Illness Initial Comments: 78-year-old male with a past medical history significant of hypertension and renal disease presented the ER for evaluation of shortness of breath. Patient reports 4 to 5 days ago he upon waking in the morning he sat up on the edge of the bed and felt extremely short of breath. He states this took a couple minutes to resolve. He states after this he was able to ambulate to the kitchen to make coffee without difficulty. Patient also reports for the past 4 to 5 days he has noticed left calf swelling and a cramping discomfort. Patient was seen by cardiology, Dr. Singer's MORAIMA, on 07-10-2024 and instructed to go to the emergency department given concern of DVT. , at bedside, states patient did not go to the emergency department at that time as he felt unwell over the weekend and wanted to wait until he felt better. Patient states over the weekend he had had progressively worsening shortness of breath especially with exertion. He denies home oxygen use, orthopnea, history of COPD or asthma. Patient is a smoker. He denies a history of blood clots. He does state he recently traveled to [facility] approximately 1 month ago no current blood thinners. He denies any current dizziness, lightheadedness, chest pain, nausea, vomiting or other complaints at this time. - Related Data Home Medications Medication Instructions Recorded Confirmed Ascorbic Acid [Vitamin C] 1,000 mg PO DAILY 04/30/23 11/05/23 Losartan/Hydrochlorothiazide 1 tab PO DAILY 04/30/23 11/05/23 [Losartan-Hctz 100-25 mg Tab] Vitamin B Complex 1 cap PO DAILY 04/30/23 11/05/23 Vitamin E (Dl,Tocopheryl Acet) 400 unit PO DAILY 04/30/23 11/05/23 [Vitamin E (400 Iu = 180 mg)] HYDROcodone/APAP 5-325MG [[place] 0.5 tab PO DAILY PRN 07/24/23 11/05/23 5-325] Vitamin D3 (Unknown Strength) 1 tab PO DAILY 07/24/23 11/05/23 Previous Rx's Medication Instructions Recorded Apixaban [Eliquis Starter Pack 0 mg PO DIRECTED 30 Days #1 07/13/24 (for VTE)] packet Allergies Allergy/AdvReac Type Severity Reaction Status Date / Time bee venom protein (honey bee) Allergy Anaphylaxis Verified 11/05/23 12:27 Penicillins Allergy Rash/Hives Verified 11/05/23 12:27 Sulfa (Sulfonamide Allergy Rash/Hives Verified 11/05/23 12:27 Antibiotics) Review of Systems ROS Statement: Those systems with pertinent positive or pertinent negative responses have been documented in the HPI. ROS Other: All systems not noted in ROS Statement are negative. Past Medical History Past Medical History: Hypertension, Renal Disease Additional Past Medical History / Comment(s): Kidney stones. cradiomyopathy History of Any Multi-Drug Resistant Organisms: None Reported Past Surgical History: Tonsillectomy Additional Past Surgical History / Comment(s): lithotripsy, kidney stone removal with catheter and drain to left flank. Past Anesthesia/Blood Transfusion Reactions: No Reported Reaction Past Psychological History: No Psychological Hx Reported Smoking Status: Current every day smoker Past Alcohol Use History: None Reported Past Drug Use History: None Reported - Past Family History Mother Family Medical History: No Reported History Brother(s) Family Medical History: Cancer Additional Family Medical History / Comment(s): prostate cancer General Exam Limitations: no limitations General appearance: alert, in no apparent distress Respiratory exam: Present: wheezes (Mild expiratory lower lungs) Cardiovascular Exam: Present: normal rhythm, tachycardia, normal heart sounds. Absent: systolic murmur, diastolic murmur, rubs, gallop, clicks Extremities exam: Present: full ROM, normal capillary refill (2+ bilateral DP pulses), calf tenderness (Left) Neurological exam: Present: alert, oriented X3, CN II-XII intact Skin exam: Present: warm, dry, intact, normal color. Absent: rash Course Vital Signs 07/13/24 07/13/24 07/13/24 13:01 16:57 17:15 Temperature 98 F 97.3 F L Pulse Rate 104 H 91 86 Respiratory 20 20 Rate Blood Pressure 125/68 137/73 O2 Sat by Pulse 93 L 92 L Oximetry 07/13/24 07/13/24 17:23 18:22 Temperature 98.4 F Pulse Rate 80 91 Respiratory 19 Rate Blood Pressure 135/75 O2 Sat by Pulse 93 L Oximetry Medical Decision Making - Medical Decision Making Was pt. sent in by a medical professional or institution (CHRIS Henry, BINDER TECHNICIAN, urgent care, hospital, or longterm...) When possible be specific @ -No Did you speak to anyone other than the patient for history (EMS, parent, family, police, friend...)? What history was obtained from this source @ -Patient's , at bedside, aiding in HPI and past medical history. Did you review nursing and triage notes (agree or disagree)? Why? @ -I reviewed and agree with nursing and triage notes Were old charts reviewed (outside hosp., previous admission, EMS record, old EKG, old radiological studies, urgent care reports/EKG's, longterm records)? Report findings @ -No old charts were reviewed Differential Diagnosis (chest pain, altered mental status, abdominal pain women, abdominal pain men, vaginal bleeding, weakness, fever, dyspnea, syncope, headache, dizziness, GI bleed, back pain, seizure, CVA, palpatations, mental health, musculoskeletal)? @ -Differential Dyspnea: Coronary syndrome, arrhythmia, tamponade, asthma, COPD, pulmonary embolism, pneumonia, pneumothorax, pulmonary effusion, anaphylaxis, diabetic ketoacidosis, flailed chest, pulmonary contusion, diaphragmatic rupture, anemia, neuromuscular, this is not meant to be an all- inclusive list. EKG interpreted by me (3pts min.). @ -As above X-rays interpreted by me (1pt min.). @ -None done CT interpreted by me (1pt min.). @ -CTA chest showing no evidence of central pulmonary embolism. Dilated main pulmonary artery suggesting pulmonary arterial hypertension. Lingular subsegmental atelectasis. U/S interpreted by me (1pt. min.). @ -Ultrasound venous Doppler left lower extremity showing a DVT of the left popliteal vein. What testing was considered but not performed or refused? (CT, X-rays, U/S, labs)? Why? @ -None What meds were considered but not given or refused? Why? @ -None Did you discuss the management of the patient with other professionals (professionals i.e. CHRIS Henry, BINDER TECHNICIAN, lab, RT, psych nurse, social services counselor, medical billing instructor, teacher, forest fire control officer, case folder)? Give summary @ -No Was smoking cessation discussed for >3mins.? @ -I discussed smoking cessation for greater than 3 minutes. The risk of smoking were discussed with the patient including but not limited to risks of cancer, stroke, coronary artery disease and COPD. Also discussed with patient were multiple methods of quitting smoking. Lastly we discussed the financial cost of smoking. Was critical care preformed (if so, how long)? @ -No Were there social determinants of health that impacted care today? How? (Homelessness, low income, unemployed, alcoholism, drug addiction, transport ation, low edu. Level, literacy, decrease access to med. care, half-way, rehab)? @ -No Was there de-escalation of care discussed even if they declined (Discuss DNR or withdrawal of care, Hospice)? DNR status @ -No What co-morbidities impacted this encounter? (DM, HTN, Smoking, COPD, CAD, Cancer, CVA, ARF, Chemo, Hep., AIDS, mental health diagnosis, sleep apnea, morbid obesity)? @ -Smoker, obese Was patient admitted / discharged? Hospital course, mention meds given and route, prescriptions, significant lab abnormalities, going to OR and other pertinent info. @ -Discharge. 78-year-old male presented the ER for evaluation of shortness of breath and left calf pain.Upon rooming, history and physical exam completed. Patient is tachycardic at 104 bpm with an oxygen saturation 93% on room air. Vitals otherwise within acceptable limits. Exam remarkable for mild expiratory wheezing throughout lower lung mccabe. Patient is neurovascularly intact. There is left calf tenderness noted with no overlying skin changes. Laboratory studies obtained showing a leukocytosis of 13.7 with a left shift. CMP was no evidence of significant electrolyte abnormality or acidosis. Troponin unde tectable. D-dimer elevated at 3.48 for which CTA chest was ordered and negative for acute evidence of pulmonary embolism. There is dilated pulmonary artery concerning off pulmonary arterial hypertension noted. Given elevated D-dimer and left calf tenderness ultrasound venous Doppler of left lower extremity was ordered and significant for a DVT of left popliteal vein patient was started on Eliquis, first dose in the emergency department. Viral swabs negative. Patient also given DuoNeb for wheezing, improved. Upon reevaluation, patient reporting improvement of shortness of breath and is extremely eager for discharge. I do lengthy discussion with the patient and significant other, at bedside, regarding Eliquis use/risks and strict return parameters. I discussed smoking cessation. Patient can be discharged home with close follow-up to PCP and cardiology. Strict return parameters discussed. Patient discharged in stable condition. Patient and patient's , at bedside, verbally expressed understanding agreement with care plan. Case discussed with ED attending by Dr. Briceno. Undiagnosed new problem with uncertain prognosis? @ -No Drug Therapy requiring intensive monitoring for toxicity (Heparin, Nitro, Insulin, Cardizem)? @ -No Were any procedures done? @ -No Diagnosis/symptom? @ -DVT of left popliteal vein Acute, or Chronic, or Acute on Chronic? @ -Acute Uncomplicated (without systemic symptoms) or Complicated (systemic symptoms)? @ -Uncomplicated Side effects of treatment? @ -No Exacerbation, Progression, or Severe Exacerbation? @ -No Poses a threat to life or bodily function? How? (Chest pain, [place], [place], pneumonia, PE, COPD, DKA, ARF, appy, cholecystitis, CVA, Diverticulitis, Homicidal, Suicidal, threat to staff... and all critical care pts) @ -Possibly, untreated DVTs can lead to PEs which can be life threatening. - Lab Data Result diagrams: 07/13/24 14:26 07/13/24 14:26 Lab Results 07/13/24 07/13/24 07/13/24 Range/Units 14:26 14:26 14:26 WBC 13.7 H (3.8-10.6) k/uL RBC 5.46 (4.30-5.90) m/uL Hgb 15.7 (13.0-17.5) gm/dL Hct 49.1 (39.0-53.0) % MCV 89.9 (80.0-100.0) fL MCH 28.7 (25.0-35.0) pg MCHC 31.9 (31.0-37.0) g/dL RDW 13.8 (11.5-15.5) % Plt Count 350 (150-450) k/uL MPV 7.1 Neutrophils % 81 % Lymphocytes % 10 % Monocytes % 4 % Eosinophils % 3 % Basophils % 1 % Neutrophils # 11.1 H (1.3-7.7) k/uL Lymphocytes # 1.4 (1.0-4.8) k/uL Monocytes # 0.5 (0-1.0) k/uL Eosinophils # 0.4 (0-0.7) k/uL Basophils # 0.2 (0-0.2) k/uL PT 11.0 (10.0-12.5) sec INR 1.0 (<1.2) APTT 23.4 (22.0-30.0) sec D-Dimer 3.84 H (<0.60) mg/L FEU Sodium 135 L (137-145) mmol/L Potassium 3.6 (3.5-5.1) mmol/L Chloride 100 (98-107) mmol/L Carbon Dioxide 27 (22-30) mmol/L Anion Gap 8 mmol/L BUN 20 (9-20) mg/dL Creatinine 1.00 (0.66-1.25) mg/dL Est GFR (CKD-EPI)AfAm 84 (>60 ml/min/1.73 sqM) Est GFR (CKD-EPI)NonAf 73 (>60 ml/min/1.73 sqM) Glucose 163 H (74-99) mg/dL Calcium 9.9 (8.4-10.2) mg/dL Magnesium 1.8 (1.6-2.3) mg/dL Total Bilirubin 0.7 (0.2-1.3) mg/dL AST 35 (17-59) U/L ALT 22 (4-49) U/L Alkaline Phosphatase 84 (38-126) U/L Troponin I (0.000-0.034) ng/mL Total Protein 7.1 (6.3-8.2) g/dL Albumin 4.0 (3.5-5.0) g/dL Influenza Type A (PCR) (Not Detectd) Influenza Type B (PCR) (Not Detectd) RSV (PCR) (Not Detectd) SARS-CoV-2 (PCR) (Not Detectd) 07/13/24 07/13/24 Range/Units 14:26 14:26 WBC (3.8-10.6) k/uL RBC (4.30-5.90) m/uL Hgb (13.0-17.5) gm/dL Hct (39.0-53.0) % MCV (80.0-100.0) fL MCH (25.0-35.0) pg MCHC (31.0-37.0) g/dL RDW (11.5-15.5) % Plt Count (150-450) k/uL MPV Neutrophils % % Lymphocytes % % Monocytes % % Eosinophils % % Basophils % % Neutrophils # (1.3-7.7) k/uL Lymphocytes # (1.0-4.8) k/uL Monocytes # (0-1.0) k/uL Eosinophils # (0-0.7) k/uL Basophils # (0-0.2) k/uL PT (10.0-12.5) sec INR (<1.2) APTT (22.0-30.0) sec D-Dimer (<0.60) mg/L FEU Sodium (137-145) mmol/L Potassium (3.5-5.1) mmol/L Chloride (98-107) mmol/L Carbon Dioxide (22-30) mmol/L Anion Gap mmol/L BUN (9-20) mg/dL Creatinine (0.66-1.25) mg/dL Est GFR (CKD-EPI)AfAm (>60 ml/min/1.73 sqM) Est GFR (CKD-EPI)NonAf (>60 ml/min/1.73 sqM) Glucose (74-99) mg/dL Calcium (8.4-10.2) mg/dL Magnesium (1.6-2.3) mg/dL Total Bilirubin (0.2-1.3) mg/dL AST (17-59) U/L ALT (4-49) U/L Alkaline Phosphatase (38-126) U/L Troponin I <0.012 (0.000-0.034) ng/mL Total Protein (6.3-8.2) g/dL Albumin (3.5-5.0) g/dL Influenza Type A (PCR) Not Detected (Not Detectd) Influenza Type B (PCR) Not Detected (Not Detectd) RSV (PCR) Not Detected (Not Detectd) SARS-CoV-2 (PCR) Not Detected (Not Detectd) - EKG Data -: EKG Interpreted by Pa EKG Comments: EKG taken at 14: 49 showing a sinus rhythm. No ST segment elevations or depressions. No T wave inversions. Ventricular rate 92, WV interval 146, QRS duration 111, QT/QTc 344/393. - Radiology Data Radiology results: report reviewed, image reviewed Disposition Clinical Impression: DVT of popliteal vein Disposition: HOME SELF-CARE Condition: Stable Instructions (If sedation given, give patient instructions): Apixaban (By mouth), Deep Vein Thrombosis (DC) Additional Instructions: Take Eliquis as prescribed. Follow-up closely with PCP as scheduled on . Return to the ER for any new or worsening concerns. Prescriptions: Apixaban [Eliquis Starter Pack (for VTE)] 0 mg PO DIRECTED 30 Days #1 packet Is patient prescribed a controlled substance at d/c from ED?: No Referrals: Lamonte Duvall DO [Primary Care Provider] - 1-2 days Time of Disposition: 17:36
[2024-07-13 14:36] LABS: Basophils # (A) 0.2 k/uL (0-0.2); Basophils % (A) 1 %; Eosinophils # (A) 0.4 k/uL (0-0.7); Eosinophils % (A) 3 %; HCT 49.1 % (39.0-53.0); HGB 15.7 gm/dL (13.0-17.5); Lymphocytes # (A) 1.4 k/uL (1.0-4.8); Lymphocytes % (A) 10 %; MCH 28.7 pg (25.0-35.0); MCHC 31.9 g/dL (31.0-37.0); MCV 89.9 fL (80.0-100.0); Mean Platelet Volume 7.1; Monocytes # (A) 0.5 k/uL (0-1.0); Monocytes % (A) 4 %; Neutrophils # (A) 11.1 k/uL (1.3-7.7); Neutrophils % (A) 81 %; Platelet Count 350 k/uL (150-450); RBC 5.46 m/uL (4.30-5.90); RDW 13.8 % (11.5-15.5); WBC 13.7 k/uL (3.8-10.6)
[2024-07-13 14:46] LABS: ALT 22 U/L (4-49); AST 35 U/L (17-59); African American GFR (CKD) 84 (>60 ml/min/1.73 sqM); Alkaline Phosphatase 84 U/L (38-126); Anion Gap 8 mmol/L; Blood Urea Nitrogen 20 mg/dL (9-20); Calcium 9.9 mg/dL (8.4-10.2); Carbon Dioxide 27 mmol/L (22-30); Chloride 100 mmol/L (98-107); Glucose 163 mg/dL (74-99); Magnesium 1.8 mg/dL (1.6-2.3); Non-African American GFR(CKD) 73 (>60 ml/min/1.73 sqM); Potassium 3.6 mmol/L (3.5-5.1); Sodium 135 mmol/L (137-145); Total Bilirubin 0.7 mg/dL (0.2-1.3); Total Protein 7.1 g/dL (6.3-8.2)
[2024-07-13 14:50] LABS: Partial Thromboplastin Time 23.4 sec (22.0-30.0)
[2024-07-13 15:06] LABS: Influenza A Not Detected (Not Detectd); Influenza B Not Detected (Not Detectd); RSV Not Detected (Not Detectd)
--- NOTE | 2024-07-13 15:54 | CT ---
EXAMINATION TYPE: CT chest angio for PE CT DLP: 692.7 mGycm, Automated exposure control for dose reduction was used. DATE OF EXAM: 07/13/2024 3:34 PM COMPARISON: CT low-dose lung 05/19/2024, 12/21/2022 CLINICAL INDICATION:Male, 78 years old with history of SOB/elevated dimer; SOB/elevated D-dimer. TECHNIQUE/CONTRAST: CTA scan of the thorax is performed with IV Contrast, patient injected with 100 ml mL of Isovue 370, pulmonary embolism protocol. MIP images are created and reviewed. FINDINGS: Pulmonary Artery: There is no evidence for a central filling defect within the pulmonary vasculature to suggest acute pulmonary embolism. Limited evaluation of the segmental and subsegmental branches se condary to bolus timing. The pulmonary artery is dilated measuring up to 3.8 cm in diameter. Lungs/Pleura: No evidence of focal consolidation, pleural effusion or pneumothorax. Subsegmental atel ectasis within the lingula. Stable peripheral right upper lobe 2 mm pulmonary micronodule (series 406 , image 47). Stability from 2022 indicates a benign nodule. No follow-up. Airway: Large airways are patent. Heart: Cardiomegaly is demonstrated.No pericardial effusion Mild coronary artery calcifications prese nt. Vasculature: No evidence of aortic aneurysm. Mild atherosclerotic calcification of the aorta is branc hes. Tortuosity descending thoracic aorta. Mediastinum: No evidence of adenopathy. Musculoskeletal: No acute osseous abnormalities. Multilevel degenerative disc disease. Redemonstratio n of anterior wedge compression deformity with Schmorl's node involving the superior endplate of the L1 vertebral body. Soft Tissues: Unremarkable. Lower neck: No significant findings. Upper Abdomen: No significant findings. IMPRESSION: 1. No evidence of central pulmonary embolism. Limited evaluation of the segmental and subsegmental br anches. 2. Dilated main pulmonary artery suggesting pulmonary arterial hypertension. 3. Lingular subsegmental atelectasis. [facility], , 07/13/2024 3:52 PM
--- NOTE | 2024-07-13 16:38 | US ---
EXAMINATION TYPE: US venous doppler duplex LE LT DATE OF EXAM: 07/13/2024 4:24 PM COMPARISON: US 2023 CLINICAL INDICATION: Male, 78 years old with history of calf pain; No hx of DVT. Patient does not blair e blood thinners. Calf pain x 5 days. TECHNIQUE: The lower extremity deep venous system is examined utilizing real time linear array sonog amisha with graded compression, color doppler sonography, and spectral doppler. SIDE PERFORMED: Left FINDINGS: VESSELS IMAGED: Common Femoral Vein Deep Femoral Vein Greater Saphenous Vein * Femoral Vein Popliteal Vein Small Saphenous Vein * Proximal Calf Veins (* superficial vessels) Left Leg: Positive for DVT. Internal echoes and color defect seen in popliteal vein. Unable to visualize peroneal veins. IMPRESSION: Positive deep vein thrombosis of the left popliteal vein. Findings communicated to Alexandra Fleming, NICKOLAS on 07/13/2024 4:[address] Hank Moon. [facility], , 07/13/2024 4:36 PM
[2024-07-13] MEDS: APIXABAN 5 MG TAB PO STA (17:12)
[2024-07-13] MEDS: IPRATROPIUM-ALBUTEROL 3 ML NEB INHALATION STA (17:12)
[2024-07-13 18:26] VITALS: BP 135/75; PULSE 91; RESP 19; TEMP 98.4
== END 2024-07-13 18:30 | disposition home or self-care (01) ==
LOC: EC 12:53
DX: I82.432 Acute embolism and thrombosis of left popliteal vein (principal); E66.9 Obesity, unspecified; F17.200 Nicotine dependence, unspecified, uncomplicated; Z88.0 Allergy status to penicillin; Z88.2 Allergy status to sulfonamides; Z91.030 Bee allergy status; Z68.38 Body mass index [BMI] 38.0-38.9, adult; Z79.01 Long term (current) use of anticoagulants
CPT/HCPCS: 36415; 94640; 93005; 85379; 80053; 83735; 84484; 85025; 85610; 85730; 87636; 93971; 71275; 99285; 99406; Q9967

== ENCOUNTER → 2024-07-13 | Outpatient (CLI) | payer MEDICARE ==
[2024-07-13 14:51] LABS: Basophils # (A) 0.12 X 10*3/uL (0.00-0.10); Basophils % (A) 0.8 %; Eosinophils # (A) 0.29 X 10*3/uL (0.04-0.35); HCT 47.9 % (39.6-50.0); HGB 15.9 g/dL (13.0-17.0); Lymphocytes % (A) 12.6 %; MCH 29.3 pg (27.0-32.0); MCHC 33.2 g/dL (32.0-37.0); MCV 88.4 FL (80.0-97.0); Mean Platelet Volume 9.2 FL (9.5-12.2); Monocytes # (A) 1.22 X 10*3/uL (0.20-1.00); Monocytes % (A) 8.5 %; NRBC Per 100 WBC 0 X 10*3/uL (0.00-0.01); Neutrophils # (A) 10.84 X 10*3/uL (1.80-7.70); Neutrophils % (A) 75.8 %; Platelet Count 324 X 10*3/uL (140-440); RBC 5.42 X 10*6/uL (4.40-5.60); RDW 13.6 % (11.5-14.5); WBC 14.32 X 10*3/uL (4.50-10.00)
[2024-07-13 15:30] LABS: ALT 20 U/L (10-49); AST 20 U/L (14-35); Albumin 3.8 g/dL (3.8-4.9); Albumin/Globulin Ratio 1.65 Ratio (1.60-3.17); Alkaline Phosphatase 92 U/L (41-126); Blood Urea Nitrogen 15.7 mg/dL (9.0-27.0); Calcium 9.8 mg/dL (8.7-10.3); Chloride 102 mmol/L (96-109); Chol/HDL Ratio 4.35 Ratio; Globulin 2.3 g/dL (1.6-3.3); Glucose 117 mg/dL (70-110); Magnesium 1.7 mg/dL (1.5-2.4); Potassium 4.3 mmol/L (3.5-5.5); Sodium 138 mmol/L (135-145); Total Bilirubin 0.5 mg/dL (0.3-1.2); Total Protein 6.1 g/dL (6.2-8.2)
== END | disposition home or self-care (01) ==
LOC: LABWHC1 11:07
PROVIDERS: ATTEND Internal Medicine
DX: I10 Essential (primary) hypertension (principal); N20.0 Calculus of kidney; M85.80 Other specified disorders of bone density and structure, unspecified site; R73.03 Prediabetes
CPT/HCPCS: 36415; 80053; 80061; 82306; 83036; 83735; 83970; 84443; 85025

== ENCOUNTER → 2024-09-28 | Outpatient (CLI) | payer MEDICARE ==
--- NOTE | 2024-09-28 14:48 | US ---
EXAMINATION TYPE: US venous doppler duplex LE BI DATE OF EXAM: 09/28/2024 2:20 PM COMPARISON: US 07/13/24 CLINICAL INDICATION: Male, 78 years old with history of I82.5Z9 DVT; F/U after DVT, on eloquis, Pain TECHNIQUE: The lower extremity deep venous system is examined utilizing real time linear array sonog amisha with graded compression, color doppler sonography, and spectral doppler. SIDE PERFORMED: Bilateral FINDINGS: VESSELS IMAGED: Common Femoral Vein Deep Femoral Vein Greater Saphenous Vein * Femoral Vein Popliteal Vein Small Saphenous Vein * Proximal Calf Veins (* superficial vessels) Right Leg: Negative for DVT, Color Doppler imaging shows patency of the vessels. Spectral waveforms are within normal limits. Left Leg: Negative for DVT, Color Doppler imaging shows patency of the vessels. Spectral waveforms a re within normal limits. IMPRESSION: 1. Bilateral lower extremity ultrasound negative for deep venous thrombosis. [facility], , 09/28/2024 2:46 PM
== END | disposition home or self-care (01) ==
LOC: RADUSWWP 13:37
PROVIDERS: ATTEND Internal Medicine Hematology & Oncology
DX: I10 Essential (primary) hypertension (principal); I82.5Z9 Chronic embolism and thrombosis of unspecified deep veins of unspecified distal lower extremity
CPT/HCPCS: 93970